=== PATIENT | male | born 1950 | race Caucasian/White ===

== ENCOUNTER 2016-08-31 07:25 | Emergency (ER) | payer MEDICARE, BC ==
[2016-08-31 07:39] VITALS: BP 132/90
--- NOTE | 2016-09-01 07:44 | ER ---
Date of Service: 08/31/2016 SUBJECTIVE: David presents to the emergency room with complaints of pain to the fifth digit of his right foot. He states that he stubbed his toe on an object in his house last evening. He states that he is having difficulties walking due to the discomfort. PAST MEDICAL HISTORY: 1. Hypertension. 2. Dyslipidemia. 3. Asthma. 4. Vitamin D deficiency. 5. COPD. 6. Esophagitis. 7. GERD. MEDICATIONS: 1. Toprol-XL 100 mg daily. 2. Lisinopril 2.5 mg daily. 3. Colace 100 mg daily. 4. Calcium plus D 1000 units daily. 5. Aspirin 81 mg daily. 6. Albuterol HFA 2 puffs q.4 hours p.r.n. ALLERGIES: NKDA. REVIEW OF SYSTEMS: Denies any injury other than what is isolated to the fifth digit of the right foot. Denies any numbness or tingling in the distal portion of the extremity. PHYSICAL EXAMINATION: General: This is a 65-year-old male patient in no acute distress. Vital Signs: Blood pressure is 132/90, pulse rate is 82, temperature is 35.7, respiratory rate is 20. Skin: Warm, pink, and dry. Musculoskeletal: He does have mild ecchymosis to the fifth digit of the right foot. No obvious fracture deformity noted. Neurovascular, circulation, sensation, and motor function within normal limits. He does again have some mild ecchymosis. RADIOGRAPHIC DATA: Radiographs of the digit were obtained. There was no evidence of any acute fracture or dislocation. ASSESSMENT: Toe contusion. PLAN: The patient will be discharged. Tylenol and ibuprofen for discomfort. Ice the digit for 10 to 15 minutes every 1 to 2 hours. Follow up in the clinic if not gradually improving. All questions were answered. MWK: 08/31/2016 18:51:57 MODL: 08/31/2016 23:42:15 /[id number]
== END 2016-08-31 08:49 | disposition home or self-care (01) ==
LOC: VM.ED 07:25
DX: S90.121A Contusion of right lesser toe(s) without damage to nail, initial encounter (principal); I10 Essential (primary) hypertension; E78.5 Hyperlipidemia, unspecified; J45.909 Unspecified asthma, uncomplicated; J44.9 Chronic obstructive pulmonary disease, unspecified; K21.9 Gastro-esophageal reflux disease without esophagitis; Z79.82 Long term (current) use of aspirin; Z79.899 Other long term (current) drug therapy; W22.8XXA Striking against or struck by other objects, initial encounter
CPT/HCPCS: 73660-T9; 99282-GF; 99283

== ENCOUNTER 2017-01-14 20:58 | Emergency (ER) | payer MEDICARE, BC ==
[2017-01-14 21:23] VITALS: BP 118/72
--- NOTE | 2017-01-15 01:28 | EDM.PDOC ---
ED HPI GENERAL MEDICAL PROBLEM - General Chief Complaint: Upper Extremity Injury/Pain Stated Complaint: fall, pain to left hand/thumb, bruised knee Time Seen by Provider: 01/14/17 21:15 Source of Information: Reports: Patient History Limitations: Reports: No Limitations - History of Present Illness INITIAL COMMENTS - FREE TEXT/NARRATIVE: Pt. states that he fell onto an outstretched R hand while walking out of work. Pt. states that he did not strike his head or injure his neck. He complains if pain to the left thumb and left anterior shoulder pain. He states that he is not experiencing any numbess or tingling in the L distal upper extremity. He also complained of pain to his L anterior lower leg. Onset: Today Onset Date: 01/14/17 Location: Reports: Upper Extremity, Left, Lower Extremity, Left Severity: Moderate Improves with: Reports: None Worsens with: Reports: Movement Associated Symptoms: Reports: No Other Symptoms, Confusion, Chest Pain left thumb/shoulder Pain Score (Numeric/FACES): 9 - Related Data Allergies Allergy/AdvReac Type Severity Reaction Status Date / Time No Known Drug Allergies Allergy Cannot Verified 01/14/17 21:08 Remember Home Meds: Home Meds Aspirin [Halfprin] 81 mg PO DAILY 05/25/13 [History] Ca Cmb No.1/Vit D3/B-6/FA/B12 [Vitamin D3 1,000 Unit] 1 each PO DAILY 05/25/13 [ History] Docusate Sodium [Colace] 100 mg PO DAILY 05/25/13 [History] Lisinopril [Lisinopril] 2.5 mg PO DAILY 05/25/13 [History] Metoprolol Succinate [Toprol XL 100mg] 100 mg PO DAILY 05/25/13 [History] Albuterol [Proventil HFA] 2 inh Q4H PRN 12/03/14 [History] Past Medical History Cardiovascular History: Reports: Other (See Below) Other Cardiovascular History: Mitral valve repair Respiratory History: Reports: Bronchitis, Recurrent Gastrointestinal History: Reports: GERD Psychiatric History: Reports: Developmental Delay - Past Surgical History Cardiovascular Surgical History: Reports: Valve Replacement Musculoskeletal Surgical History: Reports: Knee Replacement Social & Family History - Tobacco Use Smoking Status *Q: Never Smoker Years of Tobacco use: 10 - Alcohol Use Days Per Week of Alcohol Use: 0 - Recreational Drug Use Recreational Drug Use: No Review of Systems - Review of Systems Review Of Systems: See Below Constitutional: Reports: No Symptoms Eyes: Reports: No Symptoms Ears: Reports: No Symptoms Nose: Reports: No Symptoms Mouth/Throat: Reports: No Symptoms Respiratory: Reports: No Symptoms Cardiovascular: Reports: No Symptoms GI/Abdominal: Reports: No Symptoms Musculoskeletal: Reports: Arm Pain Skin: Reports: No Symptoms Neurological: Reports: No Symptoms Psychiatric: Reports: No Symptoms ED EXAM, GENERAL - Physical Exam Exam: See Below General Appearance: Alert, WD/WN Ears: Normal External Exam, Normal Canal Nose: Normal Inspection, Normal Mucosa, No Blood Throat/Mouth: Normal Inspection, Normal Lips, Normal Teeth, Normal Oropharynx, No Airway Compromise Head: Atraumatic, Normocephalic Neck: Normal Inspection Respiratory/Chest: No Respiratory Distress, Lungs Clear, Normal Breath Sounds, No Accessory Muscle Use Cardiovascular: Normal Peripheral Pulses, Regular Rate, Rhythm, No Edema, No Murmur Peripheral Pulses: 3+: Radial (L), Radial (R), Posterior Tibial (L), Posterior Tibial (R) GI/Abdominal: Normal Bowel Sounds, Soft, Non-Tender, No Organomegaly, No Mass (Male) Exam: Deferred Rectal (Males) Exam: Deferred Back Exam: Normal Inspection, Full Range of Motion Extremities: Normal Capillary Refill, Arm Pain (anterior upper arm pain), Leg Pain (abrasions noted to L anterior lower leg, superficial in nature. No deformity or other abnormality noted.), Other (pain to L thumb. No edema or ecchymosis noted. Not crepitus or deformity.) Neurological: Alert, Oriented, CN II-XII Intact, Normal Cognition, Normal Reflexes, No Motor/Sensory Deficits Psychiatric: Normal Affect, Normal Mood Skin Exam: Warm, Dry, Intact, Normal Color Lymphatic: No Adenopathy Course - Vital Signs Last Recorded V/S: Last Vital Signs Temp 35.9 C 01/14/17 21:09 Pulse 79 01/14/17 21:09 Resp 16 01/14/17 21:09 BP 118/72 01/14/17 21:09 Pulse Ox 96 01/14/17 21:09 - Orders/Labs/Meds Orders: Active Orders 24 hr Category Date Time Status Hand Comp Min 3V Lt [CR] Stat Exams 01/14/17 21:12 Stop Req Hand Comp Min 3V Lt [CR] Stat Exams 01/14/17 21:12 Taken Shoulder Comp Lt [CR] Stat Exams 01/14/17 21:12 Taken - Radiology Interpretation Free Text/Narrative:: radiographs of L hand and L upper arm obtained and were negative. Departure - Departure Time of Disposition: 22:16 Disposition: Home, Self-Care 01 Condition: Good Clinical Impression: Left thumb sprain, Left shoulder strain, Abrasion of left lower leg, Shoulder sprain, Thumb sprain - Discharge Information Instructions: Shoulder Pain, Cryotherapy, [id number], Thumb Sprain Referrals: Shirley Tavarez MD [Primary Care Provider] - Forms: ED Department Discharge Additional Instructions: Home to rest. Ice painful areas for 10-15 min every 1-2 hours. Ibuprofen 600mg every 6 hours. Follow-up in clinic in 10-14 days for recheck, sooner if not gradually improving. - My Orders Last 24 Hours: My Active Orders 01/14/17 21:12 Hand Comp Min 3V Lt [CR] Stat Hand Comp Min 3V Lt [CR] Stat Shoulder Comp Lt [CR] Stat - Assessment/Plan Last 24 Hours: My Active Orders 01/14/17 21:12 Hand Comp Min 3V Lt [CR] Stat Hand Comp Min 3V Lt [CR] Stat Shoulder Comp Lt [CR] Stat Assessment:: L thumb sprain L anterior shoulder pain L lower leg abrasions, superficial. Plan: Home to rest. Ice painful areas for 10-15 min every 1-2 hours. Ibuprofen 600mg every 6 hours. Follow-up in clinic in 10-14 days for recheck, sooner if not gradually improving.
== END 2017-01-14 22:16 | disposition home or self-care (01) ==
LOC: VM.ED 20:58
DX: S63.602A Unspecified sprain of left thumb, initial encounter (principal); S43.402A Unspecified sprain of left shoulder joint, initial encounter; S46.912A Strain of unspecified muscle, fascia and tendon at shoulder and upper arm level, left arm, initial encounter; S80.812A Abrasion, left lower leg, initial encounter; K21.9 Gastro-esophageal reflux disease without esophagitis; Z79.82 Long term (current) use of aspirin; Z79.899 Other long term (current) drug therapy; Z96.659 Presence of unspecified artificial knee joint; X50.1XXA Overexertion from prolonged static or awkward postures, initial encounter
CPT/HCPCS: 73030-LT; 73130-LT; 99283; 99283-GF

== ENCOUNTER 2017-04-05 09:22 | Emergency (ER) | payer MEDICARE, BC ==
[2017-04-05] MEDS ORDERED: GI Cocktail Oral Solution 30 ML PO ONE (09:39)
[2017-04-05] MEDS ORDERED: Sodium Chloride 0.9% 10 ML Syringe FLUSH PRN (09:39)
[2017-04-05] MEDS ORDERED: Aspirin 81 MG Tab.Chew PO ONE (09:39)
[2017-04-05 09:50] VITALS: BP 139/83
[2017-04-05 10:31] LABS: CHLORIDE,CL 106 mmol/L (98-107); SODIUM,NA 141 mmol/L (136-145)
--- NOTE | 2017-04-05 10:53 | EDM.PDOC ---
ED HPI GENERAL MEDICAL PROBLEM - General Chief Complaint: Chest Pain Stated Complaint: CHEST PAIN Time Seen by Provider: 04/05/17 09:29 Source of Information: Reports: Patient History Limitations: Reports: No Limitations - History of Present Illness INITIAL COMMENTS - FREE TEXT/NARRATIVE: Patient reports pain to the mid sternum around 0700. States his pain is worse with breathing as well as with movement. Does have a history of GERD and heartburn. His family was concerned with him and requested that he come to the emergency room. He does have history of mitral valve surgery. He currently has no complaints of nausea/vomiting, sweating, chest pressure, headache, abdominal pain. He does state that he does on intermittent occasions have some tingling down the left arm. Denies having a prior DE but has had angiograms in the past. He is frequently seen here for similar complaints. Onset: Today, Sudden Onset Date: 04/05/17 Onset Time: 07:00 Duration: Intermittent Location: Reports: Chest, Upper Extremity, Left Quality: Reports: Burning, Sharp Severity: Moderate Associated Symptoms: Reports: Chest Pain Mid-Sternal Pain Score (Numeric/FACES): 8 - Related Data Allergies Allergy/AdvReac Type Severity Reaction Status Date / Time No Known Drug Allergies Allergy Cannot Verified 04/05/17 09:52 Remember Home Meds: Home Meds Aspirin [Halfprin] 81 mg PO DAILY 05/25/13 [History] Ca Cmb No.1/Vit D3/B-6/FA/B12 [Vitamin D3 1,000 Unit] 1 each PO DAILY 05/25/13 [ History] Docusate Sodium [Colace] 100 mg PO DAILY 05/25/13 [History] Lisinopril [Lisinopril] 2.5 mg PO DAILY 05/25/13 [History] Metoprolol Succinate [Toprol XL 100mg] 100 mg PO DAILY 05/25/13 [History] Albuterol [Proventil HFA] 2 inh Q4H PRN 12/03/14 [History] Past Medical History Cardiovascular History: Reports: Other (See Below) Other Cardiovascular History: Mitral valve repair Respiratory History: Reports: Bronchitis, Recurrent Gastrointestinal History: Reports: GERD Psychiatric History: Reports: Developmental Delay - Past Surgical History Cardiovascular Surgical History: Reports: Valve Replacement Musculoskeletal Surgical History: Reports: Knee Replacement Social & Family History - Tobacco Use Smoking Status *Q: Unknown Ever Smoked Years of Tobacco use: 10 - Alcohol Use Days Per Week of Alcohol Use: 0 - Recreational Drug Use Recreational Drug Use: No ED ROS GENERAL - Review of Systems Review Of Systems: See Below Constitutional: Reports: No Symptoms HEENT: Reports: No Symptoms Respiratory: Reports: No Symptoms Cardiovascular: Reports: Chest Pain Endocrine: Reports: No Symptoms GI/Abdominal: Reports: No Symptoms : Reports: No Symptoms Musculoskeletal: Reports: Shoulder Pain, Arm Pain Skin: Reports: No Symptoms Neurological: Reports: No Symptoms Psychiatric: Reports: No Symptoms Hematologic/Lymphatic: Reports: No Symptoms Immunologic: Reports: No Symptoms ED EXAM, GENERAL - Physical Exam Exam: See Below Exam Limited By: No Limitations General Appearance: Alert, WD/WN, No Apparent Distress Ears: Normal External Exam, Normal Canal, Hearing Grossly Normal, Normal TMs Nose: Normal Inspection, Normal Mucosa, No Blood Throat/Mouth: Normal Inspection, Normal Lips, Normal Teeth, Normal Gums, Normal Oropharynx, Normal Voice, No Airway Compromise Head: Atraumatic, Normocephalic Neck: Lymphadenopathy (L), Lymphadenopathy (R) Respiratory/Chest: No Respiratory Distress, Lungs Clear, Normal Breath Sounds, No Accessory Muscle Use, Chest Non-Tender Cardiovascular: Normal Peripheral Pulses, Regular Rate, Rhythm, No Edema, No Gallop, No JVD, No Murmur, No Rub GI/Abdominal: Normal Bowel Sounds, Soft, Non-Tender, No Organomegaly, No Distention, No Abnormal Bruit, No Mass Back Exam: Normal Inspection, Full Range of Motion, NT Extremities: Normal Inspection, Normal Range of Motion, Non-Tender, Normal Capillary Refill, No Pedal Edema Neurological: Alert, Oriented, CN II-XII Intact, Normal Cognition, Normal Gait, Normal Reflexes, No Motor/Sensory Deficits Psychiatric: Normal Affect, Normal Mood Skin Exam: Warm, Dry, Intact, Normal Color, No Rash Course - Vital Signs Last Recorded V/S: Last Vital Signs Temp 34.6 C L 04/05/17 09:25 Pulse 79 04/05/17 09:25 Resp 15 04/05/17 09:25 BP 139/83 04/05/17 09:25 Pulse Ox 94 L 04/05/17 09:25 - Orders/Labs/Meds Orders: Active Orders 24 hr Category Date Time Status Chest 1V Frontal [CR] Stat Exams 04/05/17 09:38 Ordered Sodium Chloride 0.9% [Saline Flush] Med 04/05/17 09:39 Active 10 ml FLUSH ASDIRECTED PRN Saline Lock Insert [OM.PC] Routine Oth 04/05/17 09:39 Ordered Medication Orders Sodium Chloride (Saline Flush) 10 ml FLUSH ASDIRECTED PRN PRN Reason: Keep Vein Open Labs: Laboratory Tests 04/05/17 04/05/17 Range/Units 09:53 09:53 WBC 6.8 (4.0-10.0) x10^3/uL RBC 5.03 (4.5-6.0) x10^6/uL Hgb 15.5 (14.0-18.0) g/dL Hct 46.5 (40.0-52.0) % MCV 92.4 (78.0-93.0) fL MCH 30.8 (26.0-32.0) pg MCHC 33.3 (32.0-36.0) g/dL RDW Coeff of Almaz 14.2 (10.0-15.0) % Plt Count 170 (130-400) x10^3/uL Neut % (Auto) 65.1 (50.0-80.0) % Lymph % (Auto) 20.7 L (25.0-50.0) % [place] % (Auto) 10.1 (2.0-11.0) % Eos % (Auto) 3.8 (0.0-4.0) % Baso % (Auto) 0.3 (0.2-1.2) % Sodium 141 (136-145) mmol/L Potassium 4.1 (3.5-5.1) mmol/L Chloride 106 (98-107) mmol/L Carbon Dioxide 26 (21-32) mmol/L BUN 14 (7-18) mg/dL Creatinine 1.1 (0.70-1.30) mg/dL Est Cr Clr Drug Dosing TNP Estimated GFR (MDRD) > 60 Glucose 116 H (74-106) mg/dL Calcium 8.8 (8.5-10.1) mg/dL Corrected Calcium 9.28 (8.5-10.1) mg/dL Total Bilirubin 0.6 (0.2-1.0) mg/dL AST 19 (15-37) U/L ALT 26 (16-63) U/L Alkaline Phosphatase 86 (46-116) U/L Troponin I < 0.017 (<=0.056) ng/mL NT-Pro-B Natriuret Pep 220 H (<=125) pg/mL Total Protein 7.1 (6.4-8.2) g/dL Albumin 3.4 (3.4-5.0) g/dL Globulin 3.7 Albumin/Globulin Ratio 0.92 Meds: Medications Generic Name Dose Route Start Last Admin Trade Name Freq PRN Reason Stop Dose Admin Sodium Chloride 10 ml 04/05/17 09:39 Saline Flush FLUSH ASDIRECTED PRN Keep Vein Open Discontinued Medications Generic Name Dose Route Start Last Admin Trade Name Freq PRN Reason Stop Dose Admin Al Hydroxide/Mg Hydroxide 30 ml 04/05/17 09:39 04/05/17 09:55 Gi Cocktail PO 04/05/17 09:40 30 ml ONETIME ONE Administration Aspirin 243 mg 04/05/17 09:39 04/05/17 09:35 Aspirin PO 04/05/17 09:40 243 mg ONETIME ONE Administration - Re-Assessments/Exams Free Text/Narrative Re-Assessment/Exam: 04/05/17 10:40 review of x-ray results: no acute process, labwork shows negative troponin, ekg shows no ST elevation, depression or changes, sinus with a 1st degree AV block 04/05/17 12:19 Departure - Departure Time of Disposition: 11:03 Disposition: Home, Self-Care 01 Condition: Good Clinical Impression: Atypical chest pain, Atypical chest pain Instructions: Nonspecific Chest Pain, [id number] Additional Instructions: Your EKG, X-ray, and labs were all normal today. There is no evidence of an acute heart attack. Follow up with your primary care provider as symptoms warrant. Make sure you are taking your regular medications as scheduled. If you have any questions or concerns, please call us at any time. - My Orders Last 24 Hours: My Active Orders 04/05/17 09:38 Chest 1V Frontal [CR] Stat 04/05/17 09:39 Sodium Chloride 0.9% [Saline Flush] 10 ml FLUSH ASDIRECTED PRN Saline Lock Insert [OM.PC] Routine - Assessment/Plan Last 24 Hours: My Active Orders 04/05/17 09:38 Chest 1V Frontal [CR] Stat 04/05/17 09:39 Sodium Chloride 0.9% [Saline Flush] 10 ml FLUSH ASDIRECTED PRN Saline Lock Insert [OM.PC] Routine
== END 2017-04-05 11:03 | disposition home or self-care (01) ==
LOC: VM.ED 09:22
DX: R07.89 Other chest pain (principal); Z79.82 Long term (current) use of aspirin; Z79.899 Other long term (current) drug therapy
CPT/HCPCS: 36415; 71045; 80053; 83880; 84484; 85025; 87804; 93005; 99284; A9270

== ENCOUNTER 2017-05-11 08:46 | Emergency (ER) | payer MEDICARE, BC ==
--- NOTE | 2017-05-11 09:14 | EDM.PDOC ---
ED HPI GENERAL MEDICAL PROBLEM - General Chief Complaint: Syncope Stated Complaint: Dizziness; low blood pressure Time Seen by Provider: 05/11/17 09:06 Source of Information: Reports: Patient, RN, RN Notes Reviewed History Limitations: Reports: No Limitations - History of Present Illness INITIAL COMMENTS - FREE TEXT/NARRATIVE: Patient presents emergency room at [facility] complaining of dizziness and low blood pressure that started yesterday. The patient states that he was at his dentist and had a tooth pulled. While he was at that appointment he states his blood pressure was low. The patient states today when he awoke he felt very dizzy and lightheaded. The patient denies any chest pain. No shortness of breath. The patient has not had any recent falls. The patient denies any other focal neurological deficit. Onset: Gradual Onset Date: 05/10/17 Middle Abdomen Pain Score (Numeric/FACES): 8 - Related Data Allergies Allergy/AdvReac Type Severity Reaction Status Date / Time No Known Drug Allergies Allergy Cannot Verified 05/11/17 09:31 Remember Home Meds: Home Meds Aspirin [Halfprin] 81 mg PO DAILY 05/25/13 [History] Ca Cmb No.1/Vit D3/B-6/FA/B12 [Vitamin D3 1,000 Unit] 1 each PO DAILY 05/25/13 [ History] Docusate Sodium [Colace] 100 mg PO DAILY 05/25/13 [History] Lisinopril [Lisinopril] 2.5 mg PO DAILY 05/25/13 [History] Metoprolol Succinate [Toprol XL 100mg] 100 mg PO DAILY 05/25/13 [History] Albuterol [Proventil HFA] 2 inh INH Q4H PRN 12/03/14 [History] Azithromycin [IMW: Azithromycin] 250 mg PO DAILY 5 Days #6 tab 05/11/17 [Rx] Past Medical History Cardiovascular History: Reports: Other (See Below) Other Cardiovascular History: Mitral valve repair Respiratory History: Reports: Bronchitis, Recurrent Gastrointestinal History: Reports: GERD Psychiatric History: Reports: Developmental Delay - Past Surgical History Cardiovascular Surgical History: Reports: Valve Replacement Musculoskeletal Surgical History: Reports: Knee Replacement Social & Family History - Tobacco Use Smoking Status *Q: Unknown Ever Smoked Years of Tobacco use: 10 - Alcohol Use Days Per Week of Alcohol Use: 0 - Recreational Drug Use Recreational Drug Use: No ED ROS GENERAL - Review of Systems Review Of Systems: See Below Constitutional: Denies: Fever, Chills, Weakness Respiratory: Denies: Shortness of Breath, Cough Cardiovascular: Reports: Blood Pressure Problem. Denies: Chest Pain, Palpitations GI/Abdominal: Reports: Nausea. Denies: Abdominal Pain, Vomiting Skin: Reports: No Symptoms Neurological: Reports: Dizziness - Physical Exam Exam: See Below Exam Limited By: No Limitations General Appearance: Alert, No Apparent Distress Respiratory/Chest: No Respiratory Distress, Lungs Clear, Normal Breath Sounds Cardiovascular: Normal Peripheral Pulses, Regular Rate, Rhythm GI/Abdominal: Soft, Non-Tender, Abnormal Bowel Sounds (Hypoactive) Neuro Exam (Abbreviated): Alert, Oriented Skin Exam: Warm, Dry, Intact, Normal Color, No Rash Course - Vital Signs Last Recorded V/S: Last Vital Signs Temp 35.5 C 05/11/17 09:05 Pulse 85 05/11/17 09:05 Resp 20 05/11/17 09:05 BP 139/87 05/11/17 09:05 Pulse Ox 96 05/11/17 09:05 Orthostatic Blood Pressure [ 83/42 Standing] Orthostatic Blood Pressure [ 99/54 Sitting] Orthostatic Blood Pressure [ 122/57 Supine] - Orders/Labs/Meds Orders: Active Orders 24 hr Category Date Time Status EKG 12 Lead [EKG Documentation Completion] [RC] STAT Care 05/11/17 09:17 Active Orthostatic Vital Signs [RC] ASDIRECTED Care 05/11/17 10:09 Active Chest 2V [CR] Stat Exams 05/11/17 09:18 Taken UA W/MICROSCOPIC [URIN] Stat Lab 05/11/17 10:00 Ordered Sodium Chloride 0.9% [Saline Flush] Med 05/11/17 09:20 Active 10 ml FLUSH ASDIRECTED PRN Peripheral IV Insertion Adult [OM.PC] Routine Oth 05/11/17 09:20 Ordered Medication Orders Sodium Chloride (Saline Flush) 10 ml FLUSH ASDIRECTED PRN PRN Reason: Keep Vein Open Labs: Laboratory Tests 05/11/17 05/11/17 05/11/17 Range/Units 09:30 09:30 09:30 WBC 6.2 (4.0-10.0) x10^3/uL RBC 4.99 (4.5-6.0) x10^6/uL Hgb 15.4 (14.0-18.0) g/dL Hct 46.0 (40.0-52.0) % MCV 92.2 (78.0-93.0) fL MCH 30.9 (26.0-32.0) pg MCHC 33.5 (32.0-36.0) g/dL RDW Coeff of Almaz 14.2 (10.0-15.0) % Plt Count 153 (130-400) x10^3/uL Neut % (Auto) 62.7 (50.0-80.0) % Lymph % (Auto) 23.4 L (25.0-50.0) % [place] % (Auto) 9.4 (2.0-11.0) % Eos % (Auto) 4.0 (0.0-4.0) % Baso % (Auto) 0.5 (0.2-1.2) % Sodium 141 (136-145) mmol/L Potassium 4.0 (3.5-5.1) mmol/L Chloride 106 (98-107) mmol/L Carbon Dioxide 25 (21-32) mmol/L BUN 16 (7-18) mg/dL Creatinine 1.3 (0.70-1.30) mg/dL Est Cr Clr Drug Dosing TNP Estimated GFR (MDRD) 55 Glucose 139 H (74-106) mg/dL Lactic Acid 2.3 H* (0.4-2.0) mmol/L Calcium 8.8 (8.5-10.1) mg/dL Magnesium 1.8 (1.8-2.4) mg/dL C-Reactive Protein 1.5 H (<=0.9) mg/dL Meds: Medications Generic Name Dose Route Start Last Admin Trade Name Freq PRN Reason Stop Dose Admin Sodium Chloride 10 ml 05/11/17 09:20 Saline Flush FLUSH ASDIRECTED PRN Keep Vein Open Discontinued Medications Generic Name Dose Route Start Last Admin Trade Name Freq PRN Reason Stop Dose Admin Sodium Chloride 1,000 mls @ 999 mls/hr 05/11/17 09:20 Normal Saline IV 05/11/17 10:20 ONETIME ONE - Radiology Interpretation Free Text/Narrative:: CXR: Bibasilar hypoventilatory changes with actual infiltrate at right lung base suspected - see scanned report in EMR Departure - Departure Time of Disposition: 10:39 Disposition: Home, Self-Care 01 Condition: Good Clinical Impression: Community acquired pneumonia Qualifiers: Laterality: right Lung location: lower lobe of lung Qualified Code(s): J18.1 - Lobar pneumonia, unspecified organism - Discharge Information Prescriptions: Azithromycin [IMW: Azithromycin] 250 mg PO DAILY 5 Days #6 tab Instructions: Community-Acquired Pneumonia, Adult Referrals: Shirley Tavarez MD [Primary Care Provider] - Forms: ED Department Discharge Additional Instructions: 1. Stay well hydrated and rest 2. Take antibiotics for the full coarse, even if you feel better 3. Wash hands frequently 4. Cough and deep breath several times any hour 5. May alternate Tylenol/Advil as needed for discomfort 6. See your Primary as symptom warrant 7. Call with any questions/concerns - Problem List Review Problem List Initiated/Reviewed/Updated: Yes - My Orders Last 24 Hours: My Active Orders 05/11/17 09:17 EKG 12 Lead [EKG Documentation Completion] [RC] STAT 05/11/17 09:18 Chest 2V [CR] Stat 05/11/17 09:20 Sodium Chloride 0.9% [Saline Flush] 10 ml FLUSH ASDIRECTED PRN Peripheral IV Insertion Adult [OM.PC] Routine 05/11/17 10:00 UA W/MICROSCOPIC [URIN] Stat 05/11/17 10:09 Orthostatic Vital Signs [RC] ASDIRECTED - Assessment/Plan Last 24 Hours: My Active Orders 05/11/17 09:17 EKG 12 Lead [EKG Documentation Completion] [RC] STAT 05/11/17 09:18 Chest 2V [CR] Stat 05/11/17 09:20 Sodium Chloride 0.9% [Saline Flush] 10 ml FLUSH ASDIRECTED PRN Peripheral IV Insertion Adult [OM.PC] Routine 05/11/17 10:00 UA W/MICROSCOPIC [URIN] Stat 05/11/17 10:09 Orthostatic Vital Signs [RC] ASDIRECTED Plan: Labs and xray reviewed with patient. Discussed diagnosis of CAP with patient. Start on ZPak for 5 days. Recommend f/u with PCP in one week to check for resolution.
[2017-05-11] MEDS ORDERED: Sodium Chloride 0.9% 10 ML Syringe FLUSH PRN (09:20)
[2017-05-11 09:54] LABS: CHLORIDE,CL 106 mmol/L (98-107); SODIUM,NA 141 mmol/L (136-145)
[2017-05-11] MEDS: Sodium Chloride 0.9% 1,000 ML IV ONE (10:45)
[2017-05-11 11:47] VITALS: BP 101/61
== END 2017-05-11 11:53 | disposition home or self-care (01) ==
LOC: VM.ED 08:46
DX: J18.9 Pneumonia, unspecified organism (principal); Z79.2 Long term (current) use of antibiotics; Z79.82 Long term (current) use of aspirin; Z79.899 Other long term (current) drug therapy
CPT/HCPCS: 36415; 71046; 80048; 81001; 83605; 83735; 85025; 86140; 93005; 96360; 99283-GF; 99285; J7030

== ENCOUNTER 2018-05-23 09:13 | Emergency (ER) | payer MEDICARE, BC ==
[2018-05-23] MEDS ORDERED: GI Cocktail Oral Solution 30 ML PO ONE (09:32)
[2018-05-23 10:19] LABS: CHLORIDE,CL 105 mmol/L (98-107); SODIUM,NA 141 mmol/L (136-145)
[2018-05-23 10:20] LABS: ANION GAP 9.4 mmol/L (10-20)
[2018-05-23 10:43] VITALS: BP 91/52
--- NOTE | 2018-05-23 10:53 | EDM.PDOC ---
ED HPI GENERAL MEDICAL PROBLEM - General Chief Complaint: Chest Pain Stated Complaint: ACID REFLEX, DISCOMFORTABLE Time Seen by Provider: 05/23/18 09:25 Source of Information: Reports: Patient History Limitations: Reports: No Limitations - History of Present Illness INITIAL COMMENTS - FREE TEXT/NARRATIVE: Pt. presents to ER with complaints of "heartburn". Pt. has a history of CAD and cardiomyopathy and states that he has also had issues with GERD in the past. He states that the symptoms are more like his GERD symptoms with burning discomfort in the epigastrium/mid chest and burning/acidic feeling in throat. Denies any radiation into back, neck or law. No nausea/vomiting. No blood in stools. Denies any dyspnea or diaphoresis. Onset: Today Location: Reports: Chest, Abdomen Quality: Reports: Burning Severity: Moderate Associated Symptoms: Denies: cough w sputum, Diaphoresis, Fever/Chills, Shortness of Breath, Syncope Chest Pain Score (Numeric/FACES): 3 - Related Data Allergies Allergy/AdvReac Type Severity Reaction Status Date / Time No Known Drug Allergies Allergy Cannot Verified 05/23/18 09:44 Remember Home Meds: Home Meds Aspirin [Halfprin] 81 mg PO DAILY 05/25/13 [History] Ca Cmb No.1/Vit D3/B-6/FA/B12 [Vitamin D3 1,000 Unit] 1 tab PO DAILY 05/25/13 [ History] Docusate Sodium [Colace] 100 - 300 mg PO DAILY 05/25/13 [History] Lisinopril 5 mg PO DAILY 05/25/13 [History] Metoprolol Succinate [Toprol XL 100mg] 100 mg PO DAILY 05/25/13 [History] Albuterol [Proventil HFA] 2 inh INH Q4H PRN 12/03/14 [History] Pantoprazole Sodium [Protonix] 40 mg PO DAILY 05/23/18 [History] atorvaSTATin [Lipitor] 10 mg PO DAILY 05/23/18 [History] Past Medical History Cardiovascular History: Reports: Other (See Below) Other Cardiovascular History: Mitral valve repair Respiratory History: Reports: Bronchitis, Recurrent Gastrointestinal History: Reports: GERD Psychiatric History: Reports: Developmental Delay - Past Surgical History Cardiovascular Surgical History: Reports: Valve Replacement Musculoskeletal Surgical History: Reports: Knee Replacement Social & Family History - Family History Family Medical History: Noncontributory - Tobacco Use Smoking Status *Q: Former Smoker Used Tobacco, but Quit: Yes Month/Year Tobacco Last Used: 1989 - Recreational Drug Use Recreational Drug Use: No ED ROS GENERAL - Review of Systems Review Of Systems: See Below Constitutional: Reports: No Symptoms HEENT: Reports: No Symptoms Respiratory: Reports: No Symptoms Cardiovascular: Reports: Other (see HPI) Endocrine: Reports: No Symptoms GI/Abdominal: Reports: Abdominal Pain : Reports: No Symptoms Musculoskeletal: Reports: No Symptoms Skin: Reports: No Symptoms Neurological: Reports: No Symptoms Psychiatric: Reports: No Symptoms Hematologic/Lymphatic: Reports: No Symptoms Immunologic: Reports: No Symptoms ED EXAM, GENERAL - Physical Exam Exam: See Below General Appearance: Alert, WD/WN, No Apparent Distress Throat/Mouth: Normal Inspection, Normal Lips, Normal Teeth, Normal Gums, Normal Oropharynx, Normal Voice, No Airway Compromise Head: Atraumatic, Normocephalic Neck: Normal Inspection, Supple, Non-Tender, Full Range of Motion Respiratory/Chest: No Respiratory Distress, Lungs Clear, Normal Breath Sounds, No Accessory Muscle Use, Chest Non-Tender Cardiovascular: Normal Peripheral Pulses, Regular Rate, Rhythm, No Edema, No Gallop, No JVD, No Murmur, No Rub Peripheral Pulses: 3+: Radial (L), Radial (R) GI/Abdominal: Normal Bowel Sounds, Tender (tender on palpation of epigastric area) (Male) Exam: Deferred Rectal (Males) Exam: Deferred Back Exam: Normal Inspection, Full Range of Motion, NT Extremities: Normal Inspection, Normal Range of Motion, Non-Tender, Normal Capillary Refill, No Pedal Edema Neurological: Alert, Oriented, CN II-XII Intact, Normal Cognition, Normal Gait, Normal Reflexes, No Motor/Sensory Deficits Psychiatric: Normal Affect, Normal Mood Skin Exam: Warm, Dry, Intact, Normal Color, No Rash Course - Vital Signs Last Recorded V/S: Last Vital Signs Temp 35.6 C 05/23/18 09:41 Pulse 69 05/23/18 10:26 Resp 18 05/23/18 10:26 BP 91/52 L 05/23/18 10:26 Pulse Ox 97 05/23/18 10:26 - Orders/Labs/Meds Orders: Active Orders 24 hr Category Date Time Status EKG Documentation Completion [RC] STAT Care 02/19/19 09:33 Active Labs: Laboratory Tests 05/23/18 05/23/18 05/23/18 Range/Units 09:45 09:45 09:45 WBC 6.1 (4.0-10.0) x10^3/uL RBC 5.00 (4.5-6.0) x10^6/uL Hgb 15.4 (14.0-18.0) g/dL Hct 46.9 (40.0-52.0) % MCV 93.8 H (78.0-93.0) fL MCH 30.8 (26.0-32.0) pg MCHC 32.8 (32.0-36.0) g/dL RDW Coeff of Almaz 14.5 (10.0-15.0) % Plt Count 147 (130-400) x10^3/uL Neut % (Auto) 59.9 (50.0-80.0) % Lymph % (Auto) 25.1 (25.0-50.0) % [place] % (Auto) 12.2 H (2.0-11.0) % Eos % (Auto) 2.5 (0.0-4.0) % Baso % (Auto) 0.3 (0.2-1.2) % PT 10.8 (9.6-11.4) SEC INR 1.0 L (2.0-3.5) Sodium 141 (136-145) mmol/L Potassium 4.4 (3.5-5.1) mmol/L Chloride 105 (98-107) mmol/L Carbon Dioxide 31 (21-32) mmol/L Anion Gap 9.4 L (10-20) mmol/L BUN 18 (7-18) mg/dL Creatinine 1.1 (0.70-1.30) mg/dL Est Cr Clr Drug Dosing 68.21 mL/min Estimated GFR (MDRD) > 60 Glucose 99 (74-106) mg/dL Calcium 9.0 (8.5-10.1) mg/dL Corrected Calcium 9.64 (8.5-10.1) mg/dL Total Bilirubin 0.5 (0.2-1.0) mg/dL AST 16 (15-37) U/L ALT 22 (16-63) U/L Alkaline Phosphatase 87 (46-116) U/L Troponin I < 0.017 (<=0.056) ng/mL Total Protein 6.8 (6.4-8.2) g/dL Albumin 3.2 L (3.4-5.0) g/dL Globulin 3.6 Albumin/Globulin Ratio 0.89 Meds: Medications Discontinued Medications Generic Name Dose Route Start Last Admin Trade Name Stanleyq PRN Reason Stop Dose Admin Al Hydroxide/Mg Hydroxide 30 ml 05/23/18 09:32 05/23/18 09:38 Gi Cocktail PO 05/23/18 09:33 30 ml ONETIME ONE Administration Departure - Departure Time of Disposition: 10:30 Disposition: Home, Self-Care 01 Clinical Impression: GERD (gastroesophageal reflux disease) Qualifiers: Esophagitis presence: with esophagitis Qualified Code(s): K21.0 - Gastro- esophageal reflux disease with esophagitis - Discharge Information Instructions: Gastroesophageal Reflux Disease, Adult, [id number] Referrals: Shirley Tavarez MD [Primary Care Provider] - Forms: ED Department Discharge Additional Instructions: Continue with maalox as needed for continued heartburn. Recheck in clinic in 10-14 days. Continue with the protonix. - Problem List Review Problem List Initiated/Reviewed/Updated: Yes - My Orders Last 24 Hours: My Active Orders 05/23/18 09:33 EKG Documentation Completion [RC] STAT - Assessment/Plan Last 24 Hours: My Active Orders 05/23/18 09:33 EKG Documentation Completion [RC] STAT Plan: Continue with maalox as needed for continued heartburn. Recheck in clinic in 10-14 days. Continue with the protonix.
== END 2018-05-23 10:30 | disposition home or self-care (01) ==
LOC: VM.ED 09:13
DX: K21.0 Gastro-esophageal reflux disease with esophagitis (principal); Z87.891 Personal history of nicotine dependence; Z79.82 Long term (current) use of aspirin; Z79.899 Other long term (current) drug therapy
CPT/HCPCS: 36415; 80053; 84484; 85025; 85610; 93005; 99283-GF; 99285-25; A9270-GY

== ENCOUNTER 2019-01-31 08:03 | Emergency (ER) | payer MEDICARE, BC ==
[2019-01-31 08:37] VITALS: BP 136/74; PULSE 91
--- NOTE | 2019-02-01 12:43 | EDM.PDOC ---
ED HPI GENERAL MEDICAL PROBLEM - General Chief Complaint: General Stated Complaint: POSSIBLE INFECTION NEAR INCISION Time Seen by Provider: 01/31/19 08:20 Source of Information: Reports: Patient History Limitations: Reports: No Limitations - History of Present Illness INITIAL COMMENTS - FREE TEXT/NARRATIVE: Pt. underwent umbilical surgery on 01/24/19. He had what sounds like a MARIAM drain placed to the left of the incision and he is concerned that there is a hard, sharp area in the area. Denies any fever or chills. No discharge from the area. He is concerned there may be retained suture material in the drain hole. Onset: Today Onset Date: 02/01/19 Location: Reports: Abdomen Middle Incisional Pain Score (Numeric/FACES): 3 - Related Data Allergies Allergy/AdvReac Type Severity Reaction Status Date / Time No Known Drug Allergies Allergy Cannot Verified 01/31/19 08:18 Remember Home Meds: Home Meds Aspirin [Halfprin] 81 mg PO DAILY 05/25/13 [History] Ca Cmb No.1/Vit D3/B-6/FA/B12 [Vitamin D3 1,000 Unit] 1 tab PO DAILY 05/25/13 [ History] Docusate Sodium [Colace] 100 - 300 mg PO DAILY 05/25/13 [History] Albuterol [Proventil HFA] 2 inh INH Q4H PRN 12/03/14 [History] atorvaSTATin [Lipitor] 10 mg PO DAILY 05/23/18 [History] Metoprolol Succinate [Toprol Xl] 75 mg PO DAILY 01/31/19 [History] Prochlorperazine [Compazine] 5 mg Q6H PRN 01/31/19 [History] Past Medical History Cardiovascular History: Reports: Afib, CAD, High Cholesterol, Other (See Below) Other Cardiovascular History: Mitral valve repair Respiratory History: Reports: Bronchitis, Recurrent, Other (See Below) Other Respiratory History: wheezing Gastrointestinal History: Reports: GERD Psychiatric History: Reports: Developmental Delay - Past Surgical History Cardiovascular Surgical History: Reports: Valve Replacement GI Surgical History: Reports: Hernia Repair/Other Musculoskeletal Surgical History: Reports: Knee Replacement Social & Family History - Family History Family Medical History: Noncontributory - Tobacco Use Smoking Status *Q: Unknown Ever Smoked - Recreational Drug Use Recreational Drug Use: No ED ROS GENERAL - Review of Systems Review Of Systems: See Below Constitutional: Reports: No Symptoms HEENT: Reports: No Symptoms Respiratory: Reports: No Symptoms Cardiovascular: Reports: No Symptoms Endocrine: Reports: No Symptoms GI/Abdominal: Reports: Other (see above) : Reports: No Symptoms Musculoskeletal: Reports: No Symptoms Skin: Reports: No Symptoms Neurological: Reports: No Symptoms Psychiatric: Reports: No Symptoms Hematologic/Lymphatic: Reports: No Symptoms Immunologic: Reports: No Symptoms ED EXAM, GENERAL - Physical Exam Exam: See Below Exam Limited By: No Limitations General Appearance: Alert, WD/WN, No Apparent Distress GI/Abdominal: Normal Bowel Sounds, Soft, Non-Tender, No Organomegaly, No Distention, No Mass, Other (The incision appears to be healing well. No significant erythema. The area in question that the patient is concerned about is granulation tissue. No retained surgical material noted.) (Male) Exam: Deferred Rectal (Males) Exam: Deferred Back Exam: Normal Inspection, Full Range of Motion Extremities: Normal Inspection, Normal Range of Motion, Non-Tender, No Pedal Edema, Normal Capillary Refill Neurological: Alert, Oriented, CN II-XII Intact, Normal Cognition, Normal Gait, Normal Reflexes, No Motor/Sensory Deficits Psychiatric: Normal Affect, Normal Mood Skin Exam: Warm, Dry, Intact, Normal Color, No Rash Course - Vital Signs Last Recorded V/S: Last Vital Signs Temp 36.1 C 01/31/19 08:05 Pulse 91 01/31/19 08:05 Resp 18 01/31/19 08:05 BP 136/74 01/31/19 08:05 Pulse Ox 95 01/31/19 08:05 Departure - Departure Time of Disposition: 08:30 Disposition: Home, Self-Care 01 Clinical Impression: Post surgical complication - Discharge Information Referrals: Latricia Thomas NP [Primary Care Provider] - Forms: ED Department Discharge Additional Instructions: Follow-up with your surgeon if there is increased redness, swelling or discharge from the area. Minimize touching the area as much as possible to decrease chances of the area getting infected. - Assessment/Plan Plan: Follow-up with your surgeon if there is increased redness, swelling or discharge from the area. Minimize touching the area as much as possible to decrease chances of the area getting infected.
== END 2019-01-31 08:30 | disposition home or self-care (01) ==
LOC: VM.ED 08:03
DX: T81.9XXA Unspecified complication of procedure, initial encounter (principal); E78.5 Hyperlipidemia, unspecified; Z79.82 Long term (current) use of aspirin; Z79.899 Other long term (current) drug therapy; Y83.9 Surgical procedure, unspecified as the cause of abnormal reaction of the patient, or of later complication, without mention of misadventure at the time of the procedure
CPT/HCPCS: 99283; 99283-GF

== ENCOUNTER 2019-06-30 10:06 | Emergency (ER) | payer MEDICARE, BC ==
--- NOTE | 2019-06-30 10:50 | EDM.PDOC ---
ED HPI GENERAL MEDICAL PROBLEM - General Chief Complaint: Abdominal Pain Stated Complaint: STOMACH PAIN Time Seen by Provider: 06/30/19 10:25 Source of Information: Reports: Patient History Limitations: Reports: No Limitations - History of Present Illness INITIAL COMMENTS - FREE TEXT/NARRATIVE: Patient presents to ER with complaints of abdominal pain. States started 2 days ago but has been worsening. Feels bloated. Abdomen is "sore all over". Worried that he has "issues with his hernia". Has had 2 previous hernia repairs. Denies fever. No nausea or vomiting. Does have more pain after eating. Stools are loose, watery, lei in color. Has not noted any blood in his stools. No cough, chest discomfort. Does admit that he is short of breath but is chronic in nature. History of appendectomy, cholecystectomy. Onset: Gradual Duration: Day(s): Location: Reports: Abdomen, Generalized Quality: Reports: Ache, Burning, Sharp Severity: Moderate Improves with: Reports: Rest Worsens with: Reports: Eating Associated Symptoms: Reports: Shortness of Breath. Denies: Confusion, Chest Pain, Cough, Fever/Chills, Loss of Appetite, Nausea/Vomiting Middle Abdomen Pain Score (Numeric/FACES): 7 - Related Data Allergies Allergy/AdvReac Type Severity Reaction Status Date / Time No Known Drug Allergies Allergy Cannot Verified 06/30/19 11:37 Remember Home Meds: Home Meds Aspirin [Halfprin] 81 mg PO DAILY 05/25/13 [History] Ca Cmb No.1/Vit D3/B-6/FA/B12 [Vitamin D3 1,000 Unit] 1 tab PO DAILY 05/25/13 [ History] Docusate Sodium [Colace] 100 - 300 mg PO DAILY 05/25/13 [History] Albuterol [Proventil HFA] 2 inh INH Q4H PRN 12/03/14 [History] atorvaSTATin [Lipitor] 10 mg PO DAILY 05/23/18 [History] Metoprolol Succinate [Toprol Xl] 75 mg PO DAILY 01/31/19 [History] Prochlorperazine [Compazine] 5 mg Q6H PRN 01/31/19 [History] Past Medical History Cardiovascular History: Reports: Afib, CAD, High Cholesterol, Other (See Below) Other Cardiovascular History: Mitral valve repair Respiratory History: Reports: Bronchitis, Recurrent, Other (See Below) Other Respiratory History: wheezing Gastrointestinal History: Reports: GERD Psychiatric History: Reports: Developmental Delay - Past Surgical History Cardiovascular Surgical History: Reports: Valve Replacement GI Surgical History: Reports: Hernia Repair/Other Musculoskeletal Surgical History: Reports: Knee Replacement Social & Family History - Family History Family Medical History: Noncontributory - Tobacco Use Smoking Status *Q: Unknown Ever Smoked ED ROS GENERAL - Review of Systems Review Of Systems: See Below Constitutional: Denies: Fever, Chills, Malaise, Weakness, Fatigue, Decreased Appetite HEENT: Denies: Ear Pain, Sinus Problem, Throat Pain Respiratory: Reports: Shortness of Breath. Denies: Cough Cardiovascular: Denies: Chest Pain, Edema, Lightheadedness Endocrine: Denies: Fatigue GI/Abdominal: Reports: Abdominal Pain, Diarrhea. Denies: Constipation, Nausea, Vomiting : Reports: No Symptoms Musculoskeletal: Reports: No Symptoms Skin: Reports: No Symptoms Neurological: Reports: No Symptoms ED EXAM, GI/ABD - Physical Exam Exam: See Below Exam Limited By: No Limitations General Appearance: Alert, WD/WN, No Apparent Distress Ears: Normal External Exam, Normal TMs Nose: Normal Inspection, Normal Mucosa Throat/Mouth: Normal Inspection, Normal Oropharynx Head: Normocephalic Neck: Normal Inspection, Supple, Non-Tender Respiratory/Chest: No Respiratory Distress, Lungs Clear, Normal Breath Sounds Cardiovascular: Regular Rate, Rhythm GI/Abdominal Exam: Normal Bowel Sounds, Soft, Tender (diffusely throughout) Extremities: Normal Inspection, No Pedal Edema Neurological: Alert, Oriented Skin Exam: Warm, Dry Course - Vital Signs Last Recorded V/S: Last Vital Signs Temp 97 F 06/30/19 10:15 Pulse 84 06/30/19 10:15 Resp 20 06/30/19 10:15 BP 143/79 H 06/30/19 10:15 Pulse Ox 98 06/30/19 10:15 - Orders/Labs/Meds Labs: Laboratory Tests 06/30/19 06/30/19 06/30/19 Range/Units 10:43 10:43 11:31 WBC 7.1 (4.0-10.0) x10^3/uL RBC 4.88 (4.5-6.0) x10^6/uL Hgb 14.9 (14.0-18.0) g/dL Hct 45.0 (40.0-52.0) % MCV 92.2 (78.0-93.0) fL MCH 30.5 (26.0-32.0) pg MCHC 33.1 (32.0-36.0) g/dL RDW Coeff of Almaz 14.2 (10.0-15.0) % Plt Count 168 (130-400) x10^3/uL Neut % (Auto) 61.5 (50.0-80.0) % Lymph % (Auto) 24.5 L (25.0-50.0) % [place] % (Auto) 11.8 H (2.0-11.0) % Eos % (Auto) 1.8 (0.0-4.0) % Baso % (Auto) 0.4 (0.2-1.2) % Sodium 143 (136-145) mmol/L Potassium 4.4 (3.5-5.1) mmol/L Chloride 107 (98-107) mmol/L Carbon Dioxide 28 (21-32) mmol/L Anion Gap 12.4 (10-20) mmol/L BUN 26 H (7-18) mg/dL Creatinine 1.2 (0.70-1.30) mg/dL Est Cr Clr Drug Dosing TNP Estimated GFR (MDRD) > 60 Glucose 112 H (74-106) mg/dL Calcium 8.8 (8.5-10.1) mg/dL Corrected Calcium 9.36 (8.5-10.1) mg/dL Total Bilirubin 0.4 (0.2-1.0) mg/dL AST 15 (15-37) U/L ALT 25 (16-63) U/L Alkaline Phosphatase 87 (46-116) U/L C-Reactive Protein 1.5 H (<=0.9) mg/dL Total Protein 7.1 (6.4-8.2) g/dL Albumin 3.3 L (3.4-5.0) g/dL Globulin 3.8 Albumin/Globulin Ratio 0.87 Amylase 62 (25-115) U/L Lipase 208 (73-393) U/L Urine Color Yellow (YELLOW) Urine Appearance Clear (CLEAR) Urine pH 5.0 (5.0-8.0) Ur Specific [place] 1.025 Urine Protein Negative (NEGATIVE) mg/dL Urine Glucose (UA) Negative (NEGATIVE) mg/dL Urine Ketones Negative (NEGATIVE) mg/dL Urine Occult Blood Negative (NEGATIVE) Urine Nitrite Negative (NEGATIVE) Urine Bilirubin Negative (NEGATIVE) Urine Urobilinogen 0.2 (0.2) EU/dL Ur Leukocyte Esterase Negative (NEGATIVE) Meds: Medications Discontinued Medications Generic Name Dose Route Start Last Admin Trade Name Stanleyq PRN Reason Stop Dose Admin Iopamidol 100 ml 06/30/19 11:46 06/30/19 11:46 Isovue-300 (61%) IVPUSH 06/30/19 11:47 100 ml ONETIME ONE Administration - Re-Assessments/Exams Free Text/Narrative Re-Assessment/Exam: 06/30/19 12:15 Labs are all essentially normal. CT scan of abdomen is normal. Discussed with patient. Departure - Departure Time of Disposition: 12:16 Disposition: Home, Self-Care 01 Condition: Good Clinical Impression: Gastroenteritis - Discharge Information *PRESCRIPTION DRUG MONITORING PROGRAM REVIEWED*: No *COPY OF PRESCRIPTION DRUG MONITORING REPORT IN PATIENT MILEY: No Instructions: Viral Gastroenteritis, Adult Referrals: PCP,Not In Area [Primary Care Provider] - Forms: ED Department Discharge Additional Instructions: 1. Push fluids 2. Johnson, non spicy or greasy foods. May use BRAT diet to help slow down diarrhea.. Bananas, Rice, Applesauce and Colver. 3. Tylenol for discomfort 4. Follow up if any worsening symptoms Sepsis Event Note - Focused Exam Vital Signs: Vital Signs Temp Pulse Resp BP Pulse Ox 06/30/19 10:15 97 F 84 20 143/79 H 98 Date Exam was Performed: 06/30/19 Time Exam was Performed: 12:15
[2019-06-30 11:13] LABS: CHLORIDE,CL 107 mmol/L (98-107); SODIUM,NA 143 mmol/L (136-145)
[2019-06-30 11:14] LABS: ANION GAP 12.4 mmol/L (10-20)
[2019-06-30 11:46] VITALS: BP 143/79; PULSE 84
[2019-06-30] MEDS ORDERED: Iopamidol 612 MG/ML 100 ML Bottle IVPUSH ONE (11:46)
--- NOTE | 2019-06-30 12:11 | CT ---
[id number] CT/CT Abdomen Pelvis W IV EXAM: CT Abdomen Pelvis W IV CLINICAL DATA: ABDOMINAL PAIN. COMPARISON STUDY: None. FINDINGS: Lung bases are clear. The gallbladder surgically absent. The liver, spleen, pancreas, adrenal glands are unremarkable. There is a duplicated collecting system on the left. The kidneys otherwise unremarkable. No suspicious renal lesions. The appendix is not well-visualized however there are surgical clips in the expected location of the appendix consistent with prior appendectomy. No lymphadenopathy, free fluid, or pneumoperitoneum. Small fat-containing umbilical hernia. Scattered changes of spondylosis the spine. No fracture or osseous lesion. IMPRESSION: No definite acute CT findings within the abdomen or pelvis to explain the patient's symptoms. Raman Guo DO 06/30/19 1975 Thank you for allowing us to participate in the care of your patient.
== END 2019-06-30 12:30 | disposition home or self-care (01) ==
LOC: VM.ED 10:06
DX: K52.9 Noninfective gastroenteritis and colitis, unspecified (principal); I48.91 Unspecified atrial fibrillation; I25.10 Atherosclerotic heart disease of native coronary artery without angina pectoris; E78.00 Pure hypercholesterolemia, unspecified; Z79.82 Long term (current) use of aspirin; Z79.899 Other long term (current) drug therapy
CPT/HCPCS: 36415; 74177; 80053; 81003; 82150; 83690; 85025; 86140; 99284; Q9967

== ENCOUNTER 2020-05-02 10:59 | Emergency (ER) | payer MEDICARE, BC ==
[2020-05-02] MEDS ORDERED: Sodium Chloride 0.9% 10 ML Syringe FLUSH PRN (11:16)
--- NOTE | 2020-05-02 11:35 | CR ---
[id number] RAD/RAD Chest PA or AP 1V EXAM: SINGLE VIEW CHEST. INDICATION: SHORTNESS OF BREATH COMPARISON: CORRELATION IS MADE WITH MAY 11, 2017 FINDINGS: The lungs are clear The cardiac silhouette is prominent but stable IMPRESSION: NO PNEUMONIA OR EDEMA Dieter Kidd MD 05/02/20 [id number] Thank you for allowing us to participate in the care of your patient.
[2020-05-02 11:47] VITALS: BP 120/77; PULSE 103
[2020-05-02 12:05] LABS: ANION GAP 14.3 mmol/L (5-15); CHLORIDE,CL 105 mmol/L (98-107); SODIUM,NA 141 mmol/L (136-145)
[2020-05-02] MEDS: Ketorolac 15 MG/ML SDV IVPUSH ONE (12:19)
[2020-05-02] MEDS: methylPREDNISolone Sodium Succinate 125 MG/2 ML SDV IV ONE (12:19)
--- NOTE | 2020-05-02 12:37 | EDM.PDOC ---
ED HPI GENERAL MEDICAL PROBLEM - General Chief Complaint: Cardiovascular Problem Time Seen by Provider: 05/02/20 11:10 Source of Information: Reports: Patient, EMS, RN History Limitations: Reports: No Limitations - History of Present Illness INITIAL COMMENTS - FREE TEXT/NARRATIVE: Pt. presents to ER with complaints of respirophasic, sharp anterior chest pain and shortness of breath that started yesterday. He states that the discomfort is worse with movement. Denies any cough or chest congestion. No fever or chills. No nausea, vomiting, or diarrhea. Denies any ill contacts. Pt. states that the discomfort is mid-sternal. He denies any recent chest trauma. Pt. does have a history of cardiomyopathy and is due for an echo but this was cancelled due to covid 19. He has not been experiencing any shortness of breath prior to this, and feels that the dyspnea he is experiencing is due to the chest discomfort. Pt. also complains of a headache. Pt. denies any radiation of the discomfort into his jaw, arms, neck or back. Denies any hemoptysis. Denies any strenuous activity. He has not been doing any shovelling or engaging in any activity that could cause/exacerbate this complaint. He did complain of some lightheadedness/vertigo and "felt like passing out" earlier in the day. Onset Date: 05/01/20 Location: Reports: Chest Quality: Reports: Ache, Sharp Severity: Mild Associated Symptoms: Reports: Chest Pain, Headaches, Shortness of Breath. Denies: Confusion, Cough, Diaphoresis, Fever/Chills, Loss of Appetite, Malaise, Nausea/Vomiting, Rash, Seizure, Syncope, Weakness Headache Pain Score (Numeric/FACES): 6 Mid-Sternal Chest Pain Score (Numeric/FACES): 5 - Related Data Allergies Allergy/AdvReac Type Severity Reaction Status Date / Time No Known Drug Allergies Allergy Cannot Verified 05/02/20 11:19 Remember Home Meds: Home Meds Aspirin [Halfprin] 81 mg PO DAILY 05/25/13 [History] Albuterol [Proventil HFA] 2 inh INH Q4H PRN 12/03/14 [History] atorvaSTATin [Lipitor] 10 mg PO DAILY 05/23/18 [History] Metoprolol Succinate [Toprol Xl] 75 mg PO DAILY 01/31/19 [History] Amoxicillin 2,000 mg PO ASDIRECTED 05/02/20 [History] Clotrimazole [Lotrimin AF 1% Crm] 1 dose TOP BID PRN 05/02/20 [History] Ibuprofen 800 mg PO TID 05/02/20 [History] polyethylene glycoL 3350 [MiraLAX] 17 gm PO DAILY 05/02/20 [History] Past Medical History Cardiovascular History: Reports: Afib, CAD, High Cholesterol, Other (See Below) Other Cardiovascular History: Mitral valve repair Respiratory History: Reports: Bronchitis, Recurrent, Other (See Below) Other Respiratory History: wheezing Gastrointestinal History: Reports: GERD Psychiatric History: Reports: Developmental Delay - Past Surgical History Cardiovascular Surgical History: Reports: Valve Replacement GI Surgical History: Reports: Hernia Repair/Other Musculoskeletal Surgical History: Reports: Knee Replacement Social & Family History - Family History Family Medical History: No Pertinent Family History - Tobacco Use Tobacco Use Status *Q: Never Tobacco User ED ROS GENERAL - Review of Systems Review Of Systems: See Below Constitutional: Reports: No Symptoms. Denies: Fever, Chills, Malaise, Weakness, Fatigue, Diaphoresis HEENT: Reports: No Symptoms Respiratory: Reports: Shortness of Breath, Pleuritic Chest Pain Cardiovascular: Reports: Chest Pain, Lightheadedness. Denies: Blood Pressure Problem, Orthopnea, Palpitations, PND, Syncope Endocrine: Reports: No Symptoms GI/Abdominal: Reports: No Symptoms : Reports: No Symptoms Musculoskeletal: Reports: No Symptoms Skin: Reports: No Symptoms Neurological: Reports: No Symptoms Psychiatric: Reports: No Symptoms Hematologic/Lymphatic: Reports: No Symptoms Immunologic: Reports: No Symptoms ED EXAM, GENERAL - Physical Exam Exam: See Below Exam Limited By: No Limitations General Appearance: Alert, WD/WN, No Apparent Distress Throat/Mouth: Normal Inspection, Normal Lips, Normal Oropharynx, Normal Voice, No Airway Compromise Neck: Normal Inspection, Supple, Non-Tender Respiratory/Chest: No Respiratory Distress, Lungs Clear, Normal Breath Sounds, No Accessory Muscle Use, Chest Non-Tender Cardiovascular: Normal Peripheral Pulses, Regular Rate, Rhythm, No Edema, No JVD GI/Abdominal: Soft, Non-Tender, No Distention, No Mass (Male) Exam: Deferred Rectal (Males) Exam: Deferred Back Exam: Normal Inspection, Full Range of Motion Extremities: Normal Inspection, Normal Range of Motion, Non-Tender, No Pedal Edema, Normal Capillary Refill Neurological: Alert, Oriented, CN II-XII Intact, Normal Cognition, Normal Reflexes, No Motor/Sensory Deficits Psychiatric: Normal Affect, Normal Mood Skin Exam: Warm, Dry, Intact, Normal Color, No Rash Lymphatic: No Adenopathy #1 Interpretation Rhythm: NSR QRS: Normal DE/PQ Interval: 1st degree AV block Comparison: No Change Course - Vital Signs Last Recorded V/S: Last Vital Signs Temp 35.8 C L 05/02/20 11:05 Pulse 103 H 05/02/20 11:05 Resp 16 05/02/20 11:05 BP 120/77 05/02/20 11:05 Pulse Ox 98 05/02/20 11:05 - Orders/Labs/Meds Orders: Active Orders 24 hr Category Date Time Status EKG Documentation Completion [RC] STAT Care 05/02/20 11:17 Active Sodium Chloride 0.9% [Saline Flush] Med 05/02/20 11:16 Active 10 ml FLUSH ASDIRECTED PRN Peripheral IV Insertion Adult [OM.PC] Routine Oth 05/02/20 11:18 Ordered Medication Orders Sodium Chloride (Saline Flush) 10 ml FLUSH ASDIRECTED PRN PRN Reason: Keep Vein Open Labs: Laboratory Tests 05/02/20 05/02/20 05/02/20 Range/Units 11:30 11:30 11:30 WBC 6.8 (4.0-10.0) x10^3/uL RBC 4.91 (4.5-6.0) x10^6/uL Hgb 15.2 (14.0-18.0) g/dL Hct 45.4 (40.0-52.0) % MCV 92.5 (78.0-93.0) fL MCH 31.0 (26.0-32.0) pg MCHC 33.5 (32.0-36.0) g/dL RDW Coeff of Almaz 14.1 (10.0-15.0) % Plt Count 156 (130-400) x10^3/uL Neut % (Auto) 63.8 (50.0-80.0) % Lymph % (Auto) 23.1 L (25.0-50.0) % [place] % (Auto) 11.0 (2.0-11.0) % Eos % (Auto) 1.8 (0.0-4.0) % Baso % (Auto) 0.3 (0.2-1.2) % PT 10.4 (9.5-12.3) SEC INR 1.0 L (2.0-3.5) APTT (25.6-32.8) SEC D-Dimer, Quantitative (<=0.58) mg/LFEU Sodium 141 (136-145) mmol/L Potassium 4.3 (3.5-5.1) mmol/L Chloride 105 (98-107) mmol/L Carbon Dioxide 26 (21-32) mmol/L Anion Gap 14.3 (5-15) mmol/L BUN 23 H (7-18) mg/dL Creatinine 1.1 (0.70-1.30) mg/dL Est Cr Clr Drug Dosing 66.36 mL/min Estimated GFR (MDRD) > 60 Glucose 105 (74-106) mg/dL Calcium 8.5 (8.5-10.1) mg/dL Corrected Calcium 9.22 (8.5-10.1) mg/dL Magnesium 2.1 (1.8-2.4) mg/dL Total Bilirubin 0.3 (0.2-1.0) mg/dL AST 17 (15-37) U/L ALT 29 (16-63) U/L Alkaline Phosphatase 83 (46-116) U/L POC Troponin I (0.00-0.08) ng/mL C-Reactive Protein 1.5 H (<=0.9) mg/dL NT-Pro-B Natriuret Pep 426 H (<=125) pg/mL Total Protein 7.1 (6.4-8.2) g/dL Albumin 3.1 L (3.4-5.0) g/dL Globulin 4.0 g/dL Albumin/Globulin Ratio 0.78 05/02/20 05/02/20 05/02/20 Range/Units 11:30 11:30 11:33 WBC (4.0-10.0) x10^3/uL RBC (4.5-6.0) x10^6/uL Hgb (14.0-18.0) g/dL Hct (40.0-52.0) % MCV (78.0-93.0) fL MCH (26.0-32.0) pg MCHC (32.0-36.0) g/dL RDW Coeff of Almaz (10.0-15.0) % Plt Count (130-400) x10^3/uL Neut % (Auto) (50.0-80.0) % Lymph % (Auto) (25.0-50.0) % [place] % (Auto) (2.0-11.0) % Eos % (Auto) (0.0-4.0) % Baso % (Auto) (0.2-1.2) % PT (9.5-12.3) SEC INR (2.0-3.5) APTT 29.8 (25.6-32.8) SEC D-Dimer, Quantitative 0.56 (<=0.58) mg/LFEU Sodium (136-145) mmol/L Potassium (3.5-5.1) mmol/L Chloride (98-107) mmol/L Carbon Dioxide (21-32) mmol/L Anion Gap (5-15) mmol/L BUN (7-18) mg/dL Creatinine (0.70-1.30) mg/dL Est Cr Clr Drug Dosing mL/min Estimated GFR (MDRD) Glucose (74-106) mg/dL Calcium (8.5-10.1) mg/dL Corrected Calcium (8.5-10.1) mg/dL Magnesium (1.8-2.4) mg/dL Total Bilirubin (0.2-1.0) mg/dL AST (15-37) U/L ALT (16-63) U/L Alkaline Phosphatase (46-116) U/L POC Troponin I 0.00 (0.00-0.08) ng/mL C-Reactive Protein (<=0.9) mg/dL NT-Pro-B Natriuret Pep (<=125) pg/mL Total Protein (6.4-8.2) g/dL Albumin (3.4-5.0) g/dL Globulin g/dL Albumin/Globulin Ratio Meds: Medications Generic Name Dose Route Start Last Admin Trade Name Freq PRN Reason Stop Dose Admin Sodium Chloride 10 ml 05/02/20 11:16 Saline Flush FLUSH ASDIRECTED PRN Keep Vein Open Discontinued Medications Generic Name Dose Route Start Last Admin Trade Name Taylor PRN Reason Stop Dose Admin Ketorolac Tromethamine 15 mg 05/02/20 12:11 05/02/20 12:19 Toradol IVPUSH 05/02/20 12:12 15 mg ONETIME ONE Administration Methylprednisolone Sodium Succinate 125 mg 05/02/20 12:12 05/02/20 12:19 Solu-Medrol IV 05/02/20 12:13 125 mg ONETIME ONE Administration - Radiology Interpretation Free Text/Narrative:: chest x-ray negative for acute pathology Departure - Departure Time of Disposition: 12:44 Disposition: Home, Self-Care 01 Condition: Good Clinical Impression: Atypical chest pain Instructions: Nonspecific Chest Pain, Adult, [id number], Prednisone tablets Referrals: Latricia Thomas [employer] [Primary Care Provider] - Forms: ED Department Discharge Additional Instructions: Prednisone 20mg 2 tabs daily for 5 days Ibuprofen 200mg 2 tabs every 6 hours as needed for pain, starting this evening You can use a hot pack/heating pad on your chest to help with discomfort. Work on taking deep breaths, even if it hurts, to prevent getting pneumonia. Recheck in clinic in 7-10 days, sooner if not gradually improving. Sepsis Event Note (ED) - Evaluation Sepsis Screening Result: No Definite Risk - Focused Exam Vital Signs: Vital Signs Temp Pulse Resp BP Pulse Ox 05/02/20 11:05 35.8 C L 103 H 16 120/77 98 - Problem List Review Problem List Initiated/Reviewed/Updated: Yes - My Orders Last 24 Hours: My Active Orders 05/02/20 11:16 Sodium Chloride 0.9% [Saline Flush] 10 ml FLUSH ASDIRECTED PRN 05/02/20 11:17 EKG Documentation Completion [RC] STAT 05/02/20 11:18 Peripheral IV Insertion Adult [OM.PC] Routine - Assessment/Plan Last 24 Hours: My Active Orders 05/02/20 11:16 Sodium Chloride 0.9% [Saline Flush] 10 ml FLUSH ASDIRECTED PRN 05/02/20 11:17 EKG Documentation Completion [RC] STAT 05/02/20 11:18 Peripheral IV Insertion Adult [OM.PC] Routine Plan: Prednisone 20mg 2 tabs daily for 5 days Ibuprofen 200mg 2 tabs every 6 hours as needed for pain, starting this evening You can use a hot pack/heating pad on your chest to help with discomfort. Work on taking deep breaths, even if it hurts, to prevent getting pneumonia. Recheck in clinic in 7-10 days, sooner if not gradually improving.
== END 2020-05-02 12:45 | disposition home or self-care (01) ==
LOC: VM.ED 10:59
DX: R07.89 Other chest pain (principal); I48.91 Unspecified atrial fibrillation; I25.10 Atherosclerotic heart disease of native coronary artery without angina pectoris; E78.00 Pure hypercholesterolemia, unspecified; Z79.82 Long term (current) use of aspirin; Z79.899 Other long term (current) drug therapy
CPT/HCPCS: 36415; 71045; 80053; 83735; 83880; 84484; 85025; 85379; 85610; 85730; 86140; 93005; 93010; 96374; 96375; 99284; 99285-25; J1885; J2930

== ENCOUNTER 2020-07-08 10:26 | Emergency (ER) | payer MEDICARE, BC ==
[2020-07-08 10:40] VITALS: BP 115/76; PULSE 87
[2020-07-08] MEDS ORDERED: Ketorolac 30 MG/ML SDV IVPUSH ONE (10:51)
[2020-07-08] MEDS ORDERED: Sodium Chloride 0.9% 10 ML Syringe FLUSH PRN (10:51)
[2020-07-08] MEDS ORDERED: Lactated Ringers 1,000 ML IV ONE (10:51)
[2020-07-08] MEDS ORDERED: Ondansetron 4 MG/2 ML SDV IVPUSH ONE (10:51)
--- NOTE | 2020-07-08 10:56 | EDM.PDOC ---
ED HPI GENERAL MEDICAL PROBLEM - General Chief Complaint: Abdominal Pain Time Seen by Provider: 07/08/20 10:34 Source of Information: Reports: Patient, EMS - History of Present Illness INITIAL COMMENTS - FREE TEXT/NARRATIVE: David is a 70 y/o male who is brought to the ER by EMS with abdominal pain that started yesterday. He reports the pain came on yesterday afternoon and was worse with movement. He describes it as "sharp and stabbing" and points to it in the left lower abdominal region. He did have a hernia repaired a littel over a year ago at [facility] in [place]. He rates the pain 8/10. He did eat supper last night, was a but nauseated, but did not vomit. Stools are normal. This AM he reported a headache and then a mild SOB, but that seems to have gotten better on arrival to the ER. He has not taken anything for the pain, but it is worse when he moves. Left Lower Abdomen Pain Score (Numeric/FACES): 8 Headache Pain Score (Numeric/FACES): 7 - Related Data Allergies Allergy/AdvReac Type Severity Reaction Status Date / Time No Known Drug Allergies Allergy Cannot Verified 07/08/20 10:42 Remember Home Meds: Home Meds Aspirin [Halfprin] 81 mg PO DAILY 05/25/13 [History] Albuterol [Proventil HFA] 2 inh INH Q4H PRN 12/03/14 [History] atorvaSTATin [Lipitor] 10 mg PO DAILY 05/23/18 [History] Metoprolol Succinate [Toprol Xl] 75 mg PO DAILY 01/31/19 [History] Amoxicillin 2,000 mg PO ASDIRECTED 05/02/20 [History] Clotrimazole [Lotrimin AF 1% Crm] 1 dose TOP BID PRN 05/02/20 [History] Ibuprofen 800 mg PO TID 05/02/20 [History] polyethylene glycoL 3350 [MiraLAX] 17 gm PO DAILY 05/02/20 [History] Past Medical History Cardiovascular History: Reports: Afib, CAD, High Cholesterol, Other (See Below) Other Cardiovascular History: Mitral valve repair Respiratory History: Reports: Bronchitis, Recurrent, Other (See Below) Other Respiratory History: wheezing Gastrointestinal History: Reports: GERD Psychiatric History: Reports: Developmental Delay - Past Surgical History Cardiovascular Surgical History: Reports: Valve Replacement GI Surgical History: Reports: Hernia Repair/Other Musculoskeletal Surgical History: Reports: Knee Replacement Social & Family History - Family History Family Medical History: No Pertinent Family History Review of Systems - Review of Systems Review Of Systems: See Below Constitutional: Reports: No Symptoms Eyes: Reports: No Symptoms Ears: Reports: No Symptoms Nose: Reports: No Symptoms Mouth/Throat: Reports: No Symptoms Respiratory: Reports: Shortness of Breath Cardiovascular: Reports: No Symptoms GI/Abdominal: Reports: Abdominal Pain, Nausea. Denies: Decreased Appetite, Diarrhea, Vomiting Genitourinary: Reports: No Symptoms Musculoskeletal: Reports: No Symptoms Skin: Reports: No Symptoms Neurological: Reports: Headache Psychiatric: Reports: No Symptoms ED EXAM, GENERAL - Physical Exam Exam: See Below Exam Limited By: No Limitations General Appearance: Alert, WD/WN, No Apparent Distress (Elderly male.), Obese Eye Exam: Bilateral Eye: PERRL Ears: Normal External Exam, Hearing Grossly Normal Nose: Normal Inspection, Normal Mucosa Throat/Mouth: Normal Inspection, Normal Voice Head: Atraumatic, Normocephalic Neck: Supple Respiratory/Chest: No Respiratory Distress, Lungs Clear, Chest Non-Tender Cardiovascular: Normal Peripheral Pulses, Regular Rate, Rhythm, No Murmur GI/Abdominal: Normal Bowel Sounds, Soft, No Distention, Tender (Note tenderness in the left lower abd region, note well healed midline surgical scar.) (Male) Exam: Deferred Rectal (Males) Exam: Deferred Extremities: Normal Inspection, Normal Capillary Refill Neurological: Alert, Oriented, CN II-XII Intact, Normal Gait, No Motor/Sensory Deficits Psychiatric: Normal Affect Skin Exam: Warm, Dry, Intact, Normal Color, No Rash Course - Vital Signs Text/Narrative:: 1034 The patient was seen by the [employer]. Labs ordered. He was given a liter of LR and Toradol 30mg IVP and Zofran 4mg IVP. 1130 Labs reviewed. CBC neg, CMP vqlsbhw=519; Amylase=52, Abbzgt=197; UA neg; CRP=0.8; CT pending. Patient reports he is comfortable this time and no further abdominal pain or headache. 1255 CT results reviewed. Note bilateral inguinal hernias. Results discussed with pt, will have him see his PCP to schedule was a surgeon as needed. He was given written instructions and left the ER in stable condition. Last Recorded V/S: Last Vital Signs Temp 36.6 C 07/08/20 10:30 Pulse 87 07/08/20 10:30 Resp 18 07/08/20 10:30 BP 115/76 07/08/20 10:30 Pulse Ox 97 07/08/20 10:30 - Orders/Labs/Meds Orders: Active Orders 24 hr Category Date Time Status Sodium Chloride 0.9% [Saline Flush] Med 07/08/20 10:51 Active 10 ml FLUSH ASDIRECTED PRN Saline Lock Insert [OM.PC] Stat Oth 07/08/20 10:51 Ordered Medication Orders Sodium Chloride (Sodium Chloride 0.9% 10 Ml Syringe) 10 ml FLUSH ASDIRECTED PRN PRN Reason: Keep Vein Open Labs: Laboratory Tests 07/08/20 07/08/20 07/08/20 Range/Units 11:05 11:05 11:19 WBC 6.2 (4.0-10.0) x10^3/uL RBC 4.82 (4.5-6.0) x10^6/uL Hgb 15.1 (14.0-18.0) g/dL Hct 44.7 (40.0-52.0) % MCV 92.7 (78.0-93.0) fL MCH 31.3 (26.0-32.0) pg MCHC 33.8 (32.0-36.0) g/dL RDW Coeff of Almaz 14.1 (10.0-15.0) % Plt Count 152 (130-400) x10^3/uL Neut % (Auto) 67.2 (50.0-80.0) % Lymph % (Auto) 20.6 L (25.0-50.0) % [place] % (Auto) 10.5 (2.0-11.0) % Eos % (Auto) 1.4 (0.0-4.0) % Baso % (Auto) 0.3 (0.2-1.2) % Sodium 141 (136-145) mmol/L Potassium 4.2 (3.5-5.1) mmol/L Chloride 104 (98-107) mmol/L Carbon Dioxide 28 (21-32) mmol/L Anion Gap 13.2 (5-15) mmol/L BUN 16 (7-18) mg/dL Creatinine 1.1 (0.70-1.30) mg/dL Est Cr Clr Drug Dosing TNP Estimated GFR (MDRD) > 60 Glucose 105 H (70-99) mg/dL Calcium 8.7 (8.5-10.1) mg/dL Corrected Calcium 9.42 (8.5-10.1) mg/dL Magnesium 2.0 (1.8-2.4) mg/dL Total Bilirubin 0.5 (0.2-1.0) mg/dL AST 16 (15-37) U/L ALT 24 (16-63) U/L Alkaline Phosphatase 80 (46-116) U/L C-Reactive Protein 0.8 (<=0.9) mg/dL Total Protein 6.6 (6.4-8.2) g/dL Albumin 3.1 L (3.4-5.0) g/dL Globulin 3.5 Albumin/Globulin Ratio 0.89 Amylase 52 (25-115) U/L Lipase 150 (73-393) U/L Urine Color Yellow (YELLOW) Urine Appearance Clear (CLEAR) Urine pH 5.5 (5.0-8.0) Ur Specific [place] >=1.030 Urine Protein Negative (NEGATIVE) mg/dL Urine Glucose (UA) Negative (NEGATIVE) mg/dL Urine Ketones Negative (NEGATIVE) mg/dL Urine Occult Blood Negative (NEGATIVE) Urine Nitrite Negative (NEGATIVE) Urine Bilirubin Negative (NEGATIVE) Urine Urobilinogen 1.0 (0.2) EU/dL Ur Leukocyte Esterase Negative (NEGATIVE) Meds: Medications Generic Name Dose Route Start Last Admin Trade Name Freq PRN Reason Stop Dose Admin Sodium Chloride 10 ml 07/08/20 10:51 Sodium Chloride 0.9% 10 Ml Syringe FLUSH ASDIRECTED PRN Keep Vein Open Discontinued Medications Generic Name Dose Route Start Last Admin Trade Name Freq PRN Reason Stop Dose Admin Lactated Ringer's 1,000 mls @ 999 mls/hr 07/08/20 10:51 07/08/20 11:11 Ringers, Lactated IV 07/08/20 11:51 999 mls/hr ONETIME ONE Administration Iopamidol 100 ml 07/08/20 11:33 07/08/20 11:54 Iopamidol 612 Mg/Ml 100 Ml Bottle IVPUSH 07/08/20 11:34 100 ml ONETIME ONE Administration Ketorolac Tromethamine 30 mg 07/08/20 10:51 07/08/20 11:11 Ketorolac 30 Mg/Ml Sdv IVPUSH 07/08/20 10:52 30 mg ONETIME ONE Administration Ondansetron HCl 4 mg 07/08/20 10:51 07/08/20 11:14 Ondansetron 4 Mg/2 Ml Sdv IVPUSH 07/08/20 10:52 4 mg ONETIME ONE Administration - Radiology Interpretation Free Text/Narrative:: No acute findings, note bilateral inguinal hernias. CT Results Date: 07/08/20 Departure - Departure Time of Disposition: 12:53 Disposition: Home, Self-Care 01 Condition: Good Clinical Impression: Bilateral inguinal hernia Qualifiers: Obstruction and gangrene presence: without obstruction or gangrene Recurrence: not specified as recurrent Qualified Code(s): K40.20 - Bilateral inguinal hernia, without obstruction or gangrene, not specified as recurrent - Discharge Information Instructions: Inguinal Hernia, Adult, [id number] Forms: ED Department Discharge Sepsis Event Note (ED) - Evaluation Sepsis Screening Result: No Definite Risk - Focused Exam Vital Signs: Vital Signs Temp Pulse Resp BP Pulse Ox 07/08/20 10:30 36.6 C 87 18 115/76 97 - My Orders Last 24 Hours: My Active Orders 07/08/20 10:51 Sodium Chloride 0.9% [Saline Flush] 10 ml FLUSH ASDIRECTED PRN Saline Lock Insert [OM.PC] Stat - Assessment/Plan Last 24 Hours: My Active Orders 07/08/20 10:51 Sodium Chloride 0.9% [Saline Flush] 10 ml FLUSH ASDIRECTED PRN Saline Lock Insert [OM.PC] Stat Assessment:: 1)Bilateral Inguinal Hernias Plan: -Make an appt with your PCP to get a referral to a surgeon as needed to have the hernia's evaluated for possible surgical repair if needed -Use ibuprofen or acetaminophen as needed for pain -A prescription for an abdominal binder was written as this may help with your discomfort. You can get this at a local pharmacy or [employer] medical equipment store. -Return to the ER as needed
[2020-07-08 11:30] LABS: ANION GAP 13.2 mmol/L (5-15); CHLORIDE,CL 104 mmol/L (98-107); SODIUM,NA 141 mmol/L (136-145)
[2020-07-08] MEDS ORDERED: Iopamidol 612 MG/ML 100 ML Bottle IVPUSH ONE (11:33)
--- NOTE | 2020-07-08 12:40 | CT ---
[id number] CT/CT Abdomen Pelvis W IV EXAM: ABDOMEN AND PELVIS CT WITH CONTRAST INDICATION: LEFT LOWER QUADRANT PAIN, HISTORY OF HERNIA. COMPARISON: June 30, 2019. DISCUSSION: Small fat-containing bilateral inguinal hernias. Prior cholecystectomy. The liver, spleen, pancreas, adrenal glands, kidneys, small bowel and large bowel are normal in appearance. The appendix is not identified, but there are no secondary changes to suggest acute appendicitis. Prior sternotomy. Cardiomegaly. The imaged lower chest is otherwise unremarkable. IMPRESSION: 1. No acute findings. 2. Small fat-containing bilateral inguinal hernias. Zoran Van MD 07/08/20 [id number] Thank you for allowing us to participate in the care of your patient.
== END 2020-07-08 13:04 | disposition home or self-care (01) ==
LOC: VM.ED 10:26
DX: K40.20 Bilateral inguinal hernia, without obstruction or gangrene, not specified as recurrent (principal); I48.91 Unspecified atrial fibrillation; I25.10 Atherosclerotic heart disease of native coronary artery without angina pectoris; E78.00 Pure hypercholesterolemia, unspecified; Z79.82 Long term (current) use of aspirin; Z79.899 Other long term (current) drug therapy
CPT/HCPCS: 36415; 74177; 80053; 81003; 82150; 83690; 83735; 85025; 86140; 96374; 96375; 99284; 99285-25; J1885; J2405; J7120; Q9967

== ENCOUNTER 2020-07-25 09:34 | Emergency (ER) | payer MEDICARE, BC ==
[2020-07-25] MEDS ORDERED: Aspirin 81 MG Tab.Chew PO ONE (10:12)
[2020-07-25] MEDS ORDERED: Sodium Chloride 0.9% 10 ML Syringe FLUSH PRN (10:12)
[2020-07-25] MEDS ORDERED: GI Cocktail Oral Solution 30 ML PO ONE (10:12)
--- NOTE | 2020-07-25 10:18 | EDM.PDOC ---
ED HPI GENERAL MEDICAL PROBLEM - General Chief Complaint: Chest Pain Stated Complaint: CHEST PAIN Time Seen by Provider: 07/25/20 10:09 Source of Information: Reports: Patient - History of Present Illness INITIAL COMMENTS - FREE TEXT/NARRATIVE: David is a 69 y/o male who comes to the ER with midsternal chest pain that he reports started last night while he was watching TV. He denies that he was doing anything when the pain started, but reported that it is "sharp" and "comes and goes". He did not get sweaty or vomit. Chest Pain Score (Numeric/FACES): 7 - Related Data Allergies Allergy/AdvReac Type Severity Reaction Status Date / Time No Known Drug Allergies Allergy Cannot Verified 07/25/20 09:51 Remember Home Meds: Home Meds Aspirin [Halfprin] 81 mg PO DAILY 05/25/13 [History] Albuterol [Proventil HFA] 2 inh INH Q4H PRN 12/03/14 [History] atorvaSTATin [Lipitor] 10 mg PO DAILY 05/23/18 [History] Metoprolol Succinate [Toprol Xl] 75 mg PO DAILY 01/31/19 [History] Amoxicillin 2,000 mg PO ASDIRECTED 05/02/20 [History] Clotrimazole [Lotrimin AF 1% Crm] 1 dose TOP BID PRN 05/02/20 [History] Ibuprofen 800 mg PO TID 05/02/20 [History] polyethylene glycoL 3350 [MiraLAX] 17 gm PO DAILY 05/02/20 [History] Past Medical History HEENT History: Reports: Cataract Cardiovascular History: Reports: Afib, CAD, Cardiomyopathy, High Cholesterol, Other (See Below) Other Cardiovascular History: Mitral valve repair Respiratory History: Reports: Bronchitis, Recurrent, Other (See Below) Other Respiratory History: wheezing Gastrointestinal History: Reports: GERD Psychiatric History: Reports: Developmental Delay - Past Surgical History HEENT Surgical History: Reports: Tonsillectomy Cardiovascular Surgical History: Reports: Valve Replacement GI Surgical History: Reports: Hernia Repair/Other Musculoskeletal Surgical History: Reports: Knee Replacement Social & Family History - Family History Family Medical History: No Pertinent Family History - Tobacco Use Tobacco Use Status *Q: Former Tobacco User Used Tobacco, but Quit: Yes Month/Year Tobacco Last Used: 1989 - Recreational Drug Use Recreational Drug Use: No Review of Systems - Review of Systems Review Of Systems: See Below Constitutional: Reports: No Symptoms Eyes: Reports: No Symptoms Ears: Reports: No Symptoms Nose: Reports: No Symptoms Mouth/Throat: Reports: No Symptoms Respiratory: Reports: No Symptoms Cardiovascular: Reports: Chest Pain GI/Abdominal: Reports: No Symptoms Genitourinary: Reports: No Symptoms Musculoskeletal: Reports: No Symptoms Skin: Reports: No Symptoms Neurological: Reports: No Symptoms Psychiatric: Reports: No Symptoms ED EXAM, GENERAL - Physical Exam Exam: See Below Exam Limited By: No Limitations General Appearance: Alert, WD/WN, No Apparent Distress (Adult male) Eye Exam: Bilateral Eye: PERRL Ears: Normal Canal, Hearing Grossly Normal Nose: Normal Inspection, Normal Mucosa Throat/Mouth: Normal Inspection, Normal Voice Head: Atraumatic, Normocephalic Neck: Supple Respiratory/Chest: No Respiratory Distress, Lungs Clear, Normal Breath Sounds, Chest Non-Tender Cardiovascular: Normal Peripheral Pulses, Regular Rate, Rhythm, No Murmur GI/Abdominal: Normal Bowel Sounds, Soft (Male) Exam: Deferred Rectal (Males) Exam: Deferred Back Exam: Normal Inspection Extremities: Normal Inspection, Normal Range of Motion, Normal Capillary Refill Neurological: Alert, Oriented, CN II-XII Intact, Normal Reflexes Psychiatric: Normal Affect, Normal Mood Skin Exam: Warm, Dry, Intact, Normal Color Lymphatic: No Adenopathy #1 Interpretation EKG Date: 07/25/20 Time: 09:38 Rhythm: NSR Rate (Beats/Min): 87 [place]: Normal P-Wave: Present QRS: Normal ST-T: Normal QT: Normal EKG Interpretation Comments: SR with PVC noted Course - Vital Signs Text/Narrative:: 1009 The patient was seen by the INORGANIC CHEMIST. Labs and EKG were done. He was given ASA 324mg po and a GI Cocktail 30ml po. 1125 Labs reviewed. CBC neg. CMP BUN=20; Trop=8; PT=11.0, INR=1.0. Reports mi nimal discomfort in chest. Troponin negative. Doubt cardiac etiology since pain started more than 12 hours prior. Results discussed with patient. Toradol 30mg IM ordered for chest wall pain. 1200 Patient reports complete resolution of pain in his chest region. Will send home with instructions for Chest Wall Pain. He was given discharge instructions and left the ER in stable condition. Last Recorded V/S: Last Vital Signs Temp 36.2 C 07/25/20 09:52 Pulse 72 07/25/20 11:36 Resp 15 07/25/20 11:36 BP 123/70 07/25/20 11:36 Pulse Ox 97 07/25/20 11:36 - Orders/Labs/Meds Orders: Active Orders 24 hr Category Date Time Status EKG Documentation Completion [RC] STAT Care 07/25/20 10:12 Active Sodium Chloride 0.9% [Saline Flush] Med 07/25/20 10:12 Active 10 ml FLUSH ASDIRECTED PRN Saline Lock Insert [OM.PC] Stat Oth 07/25/20 10:12 Ordered Medication Orders Sodium Chloride (Sodium Chloride 0.9% 10 Ml Syringe) 10 ml FLUSH ASDIRECTED PRN PRN Reason: Keep Vein Open Labs: Laboratory Tests 07/25/20 07/25/20 07/25/20 Range/Units 10:28 10:28 10:28 WBC 5.5 (4.0-10.0) x10^3/uL RBC 4.69 (4.5-6.0) x10^6/uL Hgb 14.8 (14.0-18.0) g/dL Hct 43.6 (40.0-52.0) % MCV 93.0 (78.0-93.0) fL MCH 31.6 (26.0-32.0) pg MCHC 33.9 (32.0-36.0) g/dL RDW Coeff of Almaz 13.9 (10.0-15.0) % Plt Count 136 (130-400) x10^3/uL Add Manual Diff Yes Neutrophils % (Manual) 55 (50-80) % Band Neutrophils % 5 (0-6) % Lymphocytes % (Manual) 29 (25-50) % Monocytes % (Manual) 2 (2-11) % Eosinophils % (Manual) 9 H (0-4) % Platelet Estimate Adequate Anisocytosis 1+ slight H PT 11.0 (9.9-12.5) SEC INR 1.0 L (2.0-3.5) APTT 26.9 (25.6-32.8) SEC Sodium 146 H (136-145) mmol/L Potassium 4.7 (3.5-5.1) mmol/L Chloride 108 H (98-107) mmol/L Carbon Dioxide 31 (21-32) mmol/L Anion Gap 11.7 (5-15) mmol/L BUN 20 H (7-18) mg/dL Creatinine 1.0 (0.70-1.30) mg/dL Est Cr Clr Drug Dosing 73.00 mL/min Estimated GFR (MDRD) > 60 Glucose 98 (70-99) mg/dL Calcium 8.5 (8.5-10.1) mg/dL Corrected Calcium 9.22 (8.5-10.1) mg/dL Magnesium 2.0 (1.8-2.4) mg/dL Total Bilirubin 0.5 (0.2-1.0) mg/dL AST 20 (15-37) U/L ALT 21 (16-63) U/L Alkaline Phosphatase 79 (46-116) U/L Troponin I High Sens 8 (<=76) ng/L Total Protein 6.2 L (6.4-8.2) g/dL Albumin 3.1 L (3.4-5.0) g/dL Globulin 3.1 Albumin/Globulin Ratio 1.00 Meds: Medications Generic Name Dose Route Start Last Admin Trade Name Freq PRN Reason Stop Dose Admin Sodium Chloride 10 ml 07/25/20 10:12 Sodium Chloride 0.9% 10 Ml Syringe FLUSH ASDIRECTED PRN Keep Vein Open Discontinued Medications Generic Name Dose Route Start Last Admin Trade Name Freq PRN Reason Stop Dose Admin Al Hydroxide/Mg Hydroxide 30 ml 07/25/20 10:12 07/25/20 10:26 Gi Cocktail Oral Solution 30 Ml PO 07/25/20 10:13 30 ml ONETIME ONE Administration Aspirin 324 mg 07/25/20 10:12 07/25/20 10:26 Aspirin 81 Mg Tab.Chew PO 07/25/20 10:13 324 mg ONETIME ONE Administration Ketorolac Tromethamine 30 mg 07/25/20 11:27 07/25/20 11:34 Ketorolac 30 Mg/Ml Sdv IM 07/25/20 11:28 30 mg ONETIME ONE Administration Departure - Departure Time of Disposition: 12:01 Disposition: Home, Self-Care 01 Condition: Good Clinical Impression: Anterior chest wall pain - Discharge Information *PRESCRIPTION DRUG MONITORING PROGRAM REVIEWED*: Not Applicable *COPY OF PRESCRIPTION DRUG MONITORING REPORT IN PATIENT MILEY: Not Applicable Instructions: Nonspecific Chest Pain, Adult Referrals: PCP,Not In Area [Primary Care Provider] - Forms: ED Department Discharge Sepsis Event Note (ED) - Evaluation Sepsis Screening Result: No Definite Risk - Focused Exam Vital Signs: Vital Signs Temp Pulse Resp BP Pulse Ox 07/25/20 11:36 72 15 123/70 97 07/25/20 09:52 36.2 C 83 14 125/75 96 - My Orders Last 24 Hours: My Active Orders 07/25/20 10:12 EKG Documentation Completion [RC] STAT Sodium Chloride 0.9% [Saline Flush] 10 ml FLUSH ASDIRECTED PRN Saline Lock Insert [OM.PC] Stat - Assessment/Plan Last 24 Hours: My Active Orders 07/25/20 10:12 EKG Documentation Completion [RC] STAT Sodium Chloride 0.9% [Saline Flush] 10 ml FLUSH ASDIRECTED PRN Saline Lock Insert [OM.PC] Stat Assessment:: 1)Anterior Chest Wall Pain Plan: -Resume home medications -Use ice/heat as needed to your chest region -Follow up with your Primary Care Provider if you symptoms persist or return to the ER for any concerns
[2020-07-25 10:52] LABS: PTT,PARTIAL THROMBOPLSTIN TIME 26.9 SEC (25.6-32.8)
[2020-07-25 11:11] LABS: CHLORIDE,CL 108 mmol/L (98-107); SODIUM,NA 146 mmol/L (136-145)
[2020-07-25 11:12] LABS: ANION GAP 11.7 mmol/L (5-15)
[2020-07-25] MEDS ORDERED: Ketorolac 30 MG/ML SDV IM ONE (11:27)
[2020-07-25 12:07] VITALS: BP 124/73; PULSE 69
== END 2020-07-25 12:05 | disposition home or self-care (01) ==
LOC: VM.ED 09:34
DX: R07.89 Other chest pain (principal); I48.91 Unspecified atrial fibrillation; I25.10 Atherosclerotic heart disease of native coronary artery without angina pectoris; E78.00 Pure hypercholesterolemia, unspecified; Z79.82 Long term (current) use of aspirin; Z79.899 Other long term (current) drug therapy; Z87.891 Personal history of nicotine dependence
CPT/HCPCS: 36415; 80053; 83735; 84484; 85025; 85610; 85730; 93005; 93010; 96372; 99284; 99285; A9270; J1885

== ENCOUNTER 2020-10-10 06:52 | Emergency (ER) | payer MEDICARE, BC ==
[2020-10-10] MEDS ORDERED: Sodium Chloride 0.9% 10 ML Syringe FLUSH PRN (07:17)
[2020-10-10] MEDS ORDERED: Ondansetron 4 MG/2 ML SDV IVPUSH ONE (07:18)
[2020-10-10] MEDS ORDERED: fentaNYL 100 MCG/2 ML SDV IVPUSH ONE (07:18)
--- NOTE | 2020-10-10 07:32 | EDM.PDOC ---
ED HPI GENERAL MEDICAL PROBLEM - General Stated Complaint: ER Time Seen by Provider: 10/10/20 07:14 Source of Information: Reports: Patient History Limitations: Reports: No Limitations - History of Present Illness INITIAL COMMENTS - FREE TEXT/NARRATIVE: David is a 69 y/o male who comes to the ER via EMS for abdominal pain. He reports that he has been having upper abdominal pain for about a week now, but it got much worse through the night. He has gotten nauseated and vomited once. Had a normal BM this AM. No fever. Had an hernia repair in January 2020 and was told he had another small hernia so not sure if it is that. Left Middle Abdominal Pain Score (Numeric/FACES): 4 - Related Data Allergies Allergy/AdvReac Type Severity Reaction Status Date / Time No Known Drug Allergies Allergy Cannot Verified 07/25/20 09:51 Remember Home Meds: Home Meds Aspirin [Halfprin] 81 mg PO DAILY 05/25/13 [History] Albuterol [Proventil HFA] 2 inh INH Q4H PRN 12/03/14 [History] atorvaSTATin [Lipitor] 10 mg PO DAILY 05/23/18 [History] Metoprolol Succinate [Toprol Xl] 75 mg PO DAILY 01/31/19 [History] Amoxicillin 2,000 mg PO ASDIRECTED 05/02/20 [History] Clotrimazole [Lotrimin AF 1% Crm] 1 dose TOP BID PRN 05/02/20 [History] Ibuprofen 800 mg PO TID 05/02/20 [History] polyethylene glycoL 3350 [MiraLAX] 17 gm PO DAILY 05/02/20 [History] Past Medical History HEENT History: Reports: Cataract Cardiovascular History: Reports: Afib, CAD, Cardiomyopathy, High Cholesterol, Other (See Below) Other Cardiovascular History: Mitral valve repair Respiratory History: Reports: Bronchitis, Recurrent, Other (See Below) Other Respiratory History: wheezing Gastrointestinal History: Reports: GERD Psychiatric History: Reports: Developmental Delay - Past Surgical History HEENT Surgical History: Reports: Tonsillectomy Cardiovascular Surgical History: Reports: Valve Replacement GI Surgical History: Reports: Hernia Repair/Other Musculoskeletal Surgical History: Reports: Knee Replacement Social & Family History - Family History Family Medical History: No Pertinent Family History Review of Systems - Review of Systems Review Of Systems: See Below Constitutional: Reports: No Symptoms Eyes: Reports: No Symptoms Ears: Reports: No Symptoms Nose: Reports: No Symptoms Mouth/Throat: Reports: No Symptoms Respiratory: Reports: No Symptoms Cardiovascular: Reports: No Symptoms GI/Abdominal: Reports: Abdominal Pain, Nausea, Vomiting (x1). Denies: Constipation, Diarrhea Genitourinary: Reports: No Symptoms Musculoskeletal: Reports: No Symptoms Skin: Reports: No Symptoms Neurological: Reports: No Symptoms Psychiatric: Reports: No Symptoms ED EXAM, GENERAL - Physical Exam Exam: See Below General Appearance: Alert, WD/WN, No Apparent Distress (Elderly male) Eye Exam: Bilateral Eye: PERRL Ears: Hearing Grossly Normal Nose: Normal Inspection, Normal Mucosa Throat/Mouth: Normal Inspection, Normal Lips, Normal Oropharynx, Normal Voice Head: Atraumatic, Normocephalic Neck: Normal Inspection Respiratory/Chest: No Respiratory Distress, Lungs Clear, Chest Non-Tender Cardiovascular: Normal Peripheral Pulses, Regular Rate, Rhythm, No JVD GI/Abdominal: Normal Bowel Sounds, Soft, Other (Note well healed surgical scar above umbilcal region, no palpable hernia or mass, note tenderness in krista LUQ region) (Male) Exam: Deferred Rectal (Males) Exam: Deferred Back Exam: Normal Inspection, Full Range of Motion Extremities: Normal Inspection, Normal Range of Motion, Normal Capillary Refill Neurological: Alert, Oriented, CN II-XII Intact, Normal Cognition, No Motor/Sensory Deficits Psychiatric: Normal Affect, Normal Mood Skin Exam: Warm, Dry, Intact Course - Vital Signs Text/Narrative:: 0772 Patient was seen by the ASSISTANT PORTFOLIO MANAGER on arrival. Labs ordered. He had Zofran enroute with EMS, but was given Fentanyl 100mcg IVP for pain. 0925 Labs reviewed. Note UA neg, CBC WBC=13.0, diff neg, CMP neg. CT Abd/pelvis W ordered due to abd pain. Patient more comfortable now and able to rest. 1130 CT results neg. Results discussed with patient. His symptoms seemed to have resolved and he is resting quietly. Will have him follow up with his PCP for further testing if sx persist. He was given discharge instructions and left the ER in stable condition. Last Recorded V/S: Last Vital Signs Temp 35 C L 10/10/20 06:55 Pulse 104 H 10/10/20 06:55 Resp 20 10/10/20 06:55 BP 121/72 10/10/20 06:55 Pulse Ox 96 10/10/20 06:55 - Orders/Labs/Meds Orders: Active Orders 24 hr Category Date Time Status Sodium Chloride 0.9% [Saline Flush] Med 10/10/20 07:17 Active 10 ml FLUSH ASDIRECTED PRN Saline Lock Insert [OM.PC] Stat Oth 10/10/20 07:17 Ordered Medication Orders Sodium Chloride (Sodium Chloride 0.9% 10 Ml Syringe) 10 ml FLUSH ASDIRECTED PRN PRN Reason: Keep Vein Open Labs: Laboratory Tests 10/10/20 10/10/20 10/10/20 Range/Units 07:36 07:36 08:36 WBC 13.0 H (4.0-10.0) x10^3/uL RBC 4.99 (4.5-6.0) x10^6/uL Hgb 15.7 (14.0-18.0) g/dL Hct 46.6 (40.0-52.0) % MCV 93.4 H (78.0-93.0) fL MCH 31.5 (26.0-32.0) pg MCHC 33.7 (32.0-36.0) g/dL RDW Coeff of Almaz 14.3 (10.0-15.0) % Plt Count 165 (130-400) x10^3/uL Neut % (Auto) 78.6 (50.0-80.0) % Lymph % (Auto) 10.3 L (25.0-50.0) % [place] % (Auto) 10.1 (2.0-11.0) % Eos % (Auto) 0.8 (0.0-4.0) % Baso % (Auto) 0.2 (0.2-1.2) % Sodium 142 (136-145) mmol/L Potassium 4.6 (3.5-5.1) mmol/L Chloride 107 (98-107) mmol/L Carbon Dioxide 26 (21-32) mmol/L Anion Gap 13.6 (5-15) mmol/L BUN 21 H (7-18) mg/dL Creatinine 1.2 (0.70-1.30) mg/dL Est Cr Clr Drug Dosing TNP Estimated GFR (MDRD) > 60 Glucose 119 H (70-99) mg/dL Calcium 8.2 L (8.5-10.1) mg/dL Corrected Calcium 8.9 (8.5-10.1) mg/dL Total Bilirubin 0.4 (0.2-1.0) mg/dL AST 16 (15-37) U/L ALT 23 (16-63) U/L Alkaline Phosphatase 78 (46-116) U/L Total Protein 6.9 (6.4-8.2) g/dL Albumin 3.1 L (3.4-5.0) g/dL Globulin 3.8 Albumin/Globulin Ratio 0.82 Amylase 50 (25-115) U/L Lipase 148 (73-393) U/L Urine Color Yellow (YELLOW) Urine Appearance Clear (CLEAR) Urine pH 6.0 (5.0-8.0) Ur Specific [place] 1.025 Urine Protein Negative (NEGATIVE) mg/dL Urine Glucose (UA) Negative (NEGATIVE) mg/dL Urine Ketones Negative (NEGATIVE) mg/dL Urine Occult Blood Negative (NEGATIVE) Urine Nitrite Negative (NEGATIVE) Urine Bilirubin Negative (NEGATIVE) Urine Urobilinogen 0.2 (0.2) EU/dL Ur Leukocyte Esterase Negative (NEGATIVE) Meds: Medications Generic Name Dose Route Start Last Admin Trade Name Freq PRN Reason Stop Dose Admin Sodium Chloride 10 ml 10/10/20 07:17 Sodium Chloride 0.9% 10 Ml Syringe FLUSH ASDIRECTED PRN Keep Vein Open Discontinued Medications Generic Name Dose Route Start Last Admin Trade Name Freq PRN Reason Stop Dose Admin Fentanyl 100 mcg 10/10/20 07:18 10/10/20 07:30 Fentanyl 100 Mcg/2 Ml Sdv IVPUSH 10/10/20 07:19 100 mcg ONETIME ONE Administration Ondansetron HCl 4 mg 10/10/20 07:18 Ondansetron 4 Mg/2 Ml Sdv IVPUSH 10/10/20 07:19 ONETIME ONE - Radiology Interpretation Free Text/Narrative:: CT Abd/Pelvis W=no acute findings (see final report) Departure - Departure Time of Disposition: 11:31 Disposition: Home, Self-Care 01 Condition: Good Clinical Impression: H/O hernia repair Abdominal pain Qualifiers: Abdominal location: left upper quadrant Qualified Code(s): R10.12 - Left upper quadrant pain - Discharge Information *PRESCRIPTION DRUG MONITORING PROGRAM REVIEWED*: Not Applicable *COPY OF PRESCRIPTION DRUG MONITORING REPORT IN PATIENT [place]: Not Applicable Instructions: Abdominal Pain, Adult, [id number] Referrals: Latricia Thomas TEST BORER [Primary Care Provider] - Additional Instructions: -Resume all home meds -If pain persists, make an appt with your PCP in [place] for further diagnostic testing -Return to the ER as needed. Sepsis Event Note (ED) - Focused Exam Vital Signs: Vital Signs Temp Pulse Resp BP Pulse Ox 10/10/20 06:55 35 C L 104 H 20 121/72 96 - My Orders Last 24 Hours: My Active Orders 10/10/20 07:17 Sodium Chloride 0.9% [Saline Flush] 10 ml FLUSH ASDIRECTED PRN Saline Lock Insert [OM.PC] Stat - Assessment/Plan Last 24 Hours: My Active Orders 10/10/20 07:17 Sodium Chloride 0.9% [Saline Flush] 10 ml FLUSH ASDIRECTED PRN Saline Lock Insert [OM.PC] Stat Assessment:: 1)Abdominal Pain 2)Hx Hernia Repair Plan: As above
[2020-10-10 07:57] LABS: CHLORIDE,CL 107 mmol/L (98-107); SODIUM,NA 142 mmol/L (136-145)
[2020-10-10 07:58] LABS: ANION GAP 13.6 mmol/L (5-15)
[2020-10-10 08:12] VITALS: BP 121/72; PULSE 104
--- NOTE | 2020-10-10 11:13 | CT ---
[id number] CT/CT Abdomen Pelvis W IV EXAM: CT Abdomen Pelvis W IV CLINICAL DATA: ABDOMEN PAIN. COMPARISON STUDY: None. FINDINGS: Lung bases are clear. Liver, spleen, pancreas, adrenal glands, and kidneys are unremarkable. Cholecystectomy. No bowel obstruction or inflammation. Appendectomy. No lymphadenopathy, free fluid, or pneumoperitoneum. Prostate gland enlargement, including nodular hypertrophy exerting mass effect on the bladder base to the trigone. Urinary bladder is unremarkable. 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 Spondylosis. IMPRESSION: No acute findings in the abdomen or pelvis. Other findings are described above. Saturnino Madrid MD 10/10/20 1112 Thank you for allowing us to participate in the care of your patient.
[2020-10-10] MEDS ORDERED: Iopamidol 612 MG/ML 100 ML Bottle IVPUSH ONE (12:47)
== END 2020-10-10 11:40 | disposition home or self-care (01) ==
LOC: VM.ED 06:52
DX: R10.12 Left upper quadrant pain (principal); I48.91 Unspecified atrial fibrillation; I25.10 Atherosclerotic heart disease of native coronary artery without angina pectoris; E78.00 Pure hypercholesterolemia, unspecified; K21.9 Gastro-esophageal reflux disease without esophagitis; Z79.82 Long term (current) use of aspirin; Z79.899 Other long term (current) drug therapy
CPT/HCPCS: 36415; 74177; 80053; 81003; 82150; 83690; 85025; 96374; 99283; 99285; J3010; Q9967

== ENCOUNTER 2021-04-07 11:13 | Emergency (ER) | payer MEDICARE, BC ==
--- NOTE | 2021-04-07 11:34 | EDM.PDOC ---
ED HPI GENERAL MEDICAL PROBLEM - General Stated Complaint: HEART PROBLEMS Time Seen by Provider: 04/07/21 11:32 Source of Information: Reports: Patient - History of Present Illness INITIAL COMMENTS - FREE TEXT/NARRATIVE: David is a 70 y/o female who comes to the ER with complaints of midsternal chest pain that started about 0900 when he was walking up the stairs. Similar to previous episodes of chest pain. He did take an 81mg ASA at home today. Denies nausea or diaphoresis with the pain. Rates it 4/10, but "better" now that he is resting. - Related Data Allergies Allergy/AdvReac Type Severity Reaction Status Date / Time No Known Drug Allergies Allergy Cannot Verified 07/25/20 09:51 Remember Home Meds: Home Meds Aspirin [Halfprin] 81 mg PO DAILY 05/25/13 [History] Albuterol [Proventil HFA] 2 inh INH Q4H PRN 12/03/14 [History] atorvaSTATin [Lipitor] 10 mg PO DAILY 05/23/18 [History] Metoprolol Succinate [Toprol Xl] 75 mg PO DAILY 01/31/19 [History] Amoxicillin 2,000 mg PO ASDIRECTED 05/02/20 [History] Clotrimazole [Lotrimin AF 1% Crm] 1 dose TOP BID PRN 05/02/20 [History] Ibuprofen 800 mg PO TID 05/02/20 [History] polyethylene glycoL 3350 [MiraLAX] 17 gm PO DAILY 05/02/20 [History] Past Medical History HEENT History: Reports: Cataract Cardiovascular History: Reports: Afib, CAD, Cardiomyopathy, High Cholesterol, Other (See Below) Other Cardiovascular History: Mitral valve repair Respiratory History: Reports: Bronchitis, Recurrent, Other (See Below) Other Respiratory History: wheezing Gastrointestinal History: Reports: GERD Psychiatric History: Reports: Developmental Delay - Past Surgical History HEENT Surgical History: Reports: Tonsillectomy Cardiovascular Surgical History: Reports: Valve Replacement GI Surgical History: Reports: Hernia Repair/Other Musculoskeletal Surgical History: Reports: Knee Replacement Social & Family History - Family History Family Medical History: No Pertinent Family History Review of Systems - Review of Systems Review Of Systems: See Below Constitutional: Reports: No Symptoms Eyes: Reports: No Symptoms Ears: Reports: No Symptoms Nose: Reports: No Symptoms Mouth/Throat: Reports: No Symptoms Respiratory: Reports: No Symptoms Cardiovascular: Reports: Chest Pain GI/Abdominal: Reports: No Symptoms Genitourinary: Reports: No Symptoms Musculoskeletal: Reports: No Symptoms Skin: Reports: No Symptoms Neurological: Reports: No Symptoms Psychiatric: Reports: No Symptoms ED EXAM, GENERAL - Physical Exam Exam: See Below Exam Limited By: No Limitations General Appearance: Alert, WD/WN, No Apparent Distress (Elderly male, non-toxic appearing) Eye Exam: Bilateral Eye: PERRL Ears: Normal External Exam, Normal Canal, Hearing Grossly Normal Nose: Normal Inspection, Normal Mucosa Throat/Mouth: Normal Inspection, Normal Lips, Normal Oropharynx, Normal Voice Head: Atraumatic, Normocephalic Neck: Normal Inspection, Supple Respiratory/Chest: No Respiratory Distress, Lungs Clear, Other (Mild tenderness to midsternal chest region) Cardiovascular: Normal Peripheral Pulses, Regular Rate, Rhythm, No Edema, No JVD, No Murmur GI/Abdominal: Normal Bowel Sounds, Soft, Non-Tender (Male) Exam: Deferred Rectal (Males) Exam: Deferred Back Exam: Normal Inspection, Full Range of Motion Extremities: Normal Inspection, Normal Range of Motion, No Pedal Edema, Normal Capillary Refill Neurological: Alert, Oriented, CN II-XII Intact, Normal Cognition, Normal Gait, No Motor/Sensory Deficits Psychiatric: Normal Affect, Normal Mood Skin Exam: Warm, Intact, Normal Color #1 Interpretation EKG Date: 04/07/21 Time: 11:16 Rhythm: NSR Rate (Beats/Min): 106 [place]: Normal P-Wave: Present QRS: Normal QT: Normal Comparison: Other: (Comparison 07/25/2020) EKG Interpretation Comments: Sinus Tachycardia with episode of Ventricular Bigeminy Course - Vital Signs Text/Narrative:: 1132 The patient was seen by the [facility]. Labs,EKG, CXR ordered. He was given ASA 81mg x 3 since he had one at home. 1220 Labs negative. EKG negative. Plan 3 hour observation and serial troponin. 1510 Troponin unchanged. No further c/o. Written instructions were given and he left the ER in stable condition. Last Recorded V/S: Last Vital Signs Temp 36.2 C 04/07/21 11:20 Pulse 72 04/07/21 14:25 Resp 14 04/07/21 14:25 BP 114/80 04/07/21 14:25 Pulse Ox 94 L 04/07/21 12:45 - Orders/Labs/Meds Orders: Active Orders 24 hr Category Date Time Status Sodium Chloride 0.9% [Saline Flush] Med 04/07/21 11:50 Active 10 ml FLUSH ASDIRECTED PRN Saline Lock Insert [OM.PC] Stat Oth 04/07/21 11:51 Ordered Medication Orders Sodium Chloride (Sodium Chloride 0.9% 10 Ml Syringe) 10 ml FLUSH ASDIRECTED PRN PRN Reason: Keep Vein Open Labs: Laboratory Tests 04/07/21 04/07/21 04/07/21 Range/Units 11:30 11:30 11:30 WBC 7.5 (4.0-10.0) x10^3/uL RBC 5.11 (4.5-6.0) x10^6/uL Hgb 15.8 (14.0-18.0) g/dL Hct 46.2 (40.0-52.0) % MCV 90.4 (78.0-93.0) fL MCH 30.9 (26.0-32.0) pg MCHC 34.2 (32.0-36.0) g/dL RDW Coeff of Almaz 13.4 (10.0-15.0) % Plt Count 167 (130-400) x10^3/uL Immature Gran % (Auto) 0.30 (0.00-0.43) % Neut % (Auto) 66.7 (50.0-80.0) % Lymph % (Auto) 20.3 L (25.0-50.0) % Williamson % (Auto) 10.7 (2.0-11.0) % Eos % (Auto) 1.3 (0.0-4.0) % Baso % (Auto) 0.7 (0.2-1.2) % Neut # (Auto) 5.0 (1.8-7.7) x10^3/uL Lymph # (Auto) 1.5 (1.0-4.8) x10^3/uL Williamson # (Auto) 0.8 (0.0-0.8) x10^3/uL Eos # (Auto) 0.1 (0.0-0.5) x10^3/uL Baso # (Auto) 0.1 (0.0-0.2) x10^3/uL Immature Gran # (Auto) 0.02 (0.00-0.07) x10^3/uL PT 10.7 (9.9-12.5) SEC INR 1.0 L (2.0-3.5) APTT 26.7 (25.6-32.8) SEC Sodium 142 (136-145) mmol/L Potassium 5.1 (3.5-5.1) mmol/L Chloride 105 (98-107) mmol/L Carbon Dioxide 28 (21-32) mmol/L Anion Gap 14.1 (5-15) mmol/L BUN 23 H (7-18) mg/dL Creatinine 1.1 (0.70-1.30) mg/dL Est Cr Clr Drug Dosing TNP Estimated GFR (MDRD) > 60 Glucose 110 H (70-99) mg/dL Calcium 9.1 (8.5-10.1) mg/dL Corrected Calcium 9.7 (8.5-10.1) mg/dL Magnesium 2.4 (1.8-2.4) mg/dL Total Bilirubin 0.5 (0.2-1.0) mg/dL AST 24 (15-37) U/L ALT 26 (16-63) U/L Alkaline Phosphatase 92 (46-116) U/L Troponin I High Sens 8 (<=76) ng/L Total Protein 7.3 (6.4-8.2) g/dL Albumin 3.2 L (3.4-5.0) g/dL Globulin 4.1 Albumin/Globulin Ratio 0.78 04/07/21 Range/Units 14:36 WBC (4.0-10.0) x10^3/uL RBC (4.5-6.0) x10^6/uL Hgb (14.0-18.0) g/dL Hct (40.0-52.0) % MCV (78.0-93.0) fL MCH (26.0-32.0) pg MCHC (32.0-36.0) g/dL RDW Coeff of Almaz (10.0-15.0) % Plt Count (130-400) x10^3/uL Immature Gran % (Auto) (0.00-0.43) % Neut % (Auto) (50.0-80.0) % Lymph % (Auto) (25.0-50.0) % Williamson % (Auto) (2.0-11.0) % Eos % (Auto) (0.0-4.0) % Baso % (Auto) (0.2-1.2) % Neut # (Auto) (1.8-7.7) x10^3/uL Lymph # (Auto) (1.0-4.8) x10^3/uL Williamson # (Auto) (0.0-0.8) x10^3/uL Eos # (Auto) (0.0-0.5) x10^3/uL Baso # (Auto) (0.0-0.2) x10^3/uL Immature Gran # (Auto) (0.00-0.07) x10^3/uL PT (9.9-12.5) SEC INR (2.0-3.5) APTT (25.6-32.8) SEC Sodium (136-145) mmol/L Potassium (3.5-5.1) mmol/L Chloride (98-107) mmol/L Carbon Dioxide (21-32) mmol/L Anion Gap (5-15) mmol/L BUN (7-18) mg/dL Creatinine (0.70-1.30) mg/dL Est Cr Clr Drug Dosing Estimated GFR (MDRD) Glucose (70-99) mg/dL Calcium (8.5-10.1) mg/dL Corrected Calcium (8.5-10.1) mg/dL Magnesium (1.8-2.4) mg/dL Total Bilirubin (0.2-1.0) mg/dL AST (15-37) U/L ALT (16-63) U/L Alkaline Phosphatase (46-116) U/L Troponin I High Sens 8 (<=76) ng/L Total Protein (6.4-8.2) g/dL Albumin (3.4-5.0) g/dL Globulin Albumin/Globulin Ratio Meds: Medications Generic Name Dose Route Start Last Admin Trade Name Freq PRN Reason Stop Dose Admin Sodium Chloride 10 ml 04/07/21 11:50 Sodium Chloride 0.9% 10 Ml Syringe FLUSH ASDIRECTED PRN Keep Vein Open Departure - Departure Time of Disposition: 15:09 Disposition: Home, Self-Care 01 Condition: Good Clinical Impression: Acute chest wall pain - Discharge Information Instructions: Nonspecific Chest Pain, Adult, [id number] Referrals: PCP,Not In Area [Primary Care Provider] - Additional Instructions: -Resume all meds -Warm/cool packs to chest region as needed -Rest as needed -Follow up with your PCP or return to the ER for any concerns Sepsis Event Note (ED) - Focused Exam Vital Signs: Vital Signs Temp Pulse Resp BP Pulse Ox 04/07/21 14:25 72 14 114/80 04/07/21 12:45 69 16 122/76 94 L 04/07/21 12:15 87 16 124/69 04/07/21 11:20 36.2 C 97 20 121/80 94 L - Problem List & Annotations (1) Acute chest wall pain SNOMED Code(s): 876630456, 760254085 Code(s): R07.89 - OTHER CHEST PAIN Status: Acute Current Visit: Yes Annotation/Comment:: Serial Troponins negative. EKG unchanged. Has been in for mulitple episodes of simlar pain. HEART Score=12-16.6% risk of MACE, 3 hours troponins studies negative today. Will discharge to home. - Problem List Review Problem List Initiated/Reviewed/Updated: Yes - My Orders Last 24 Hours: My Active Orders 04/07/21 11:50 Sodium Chloride 0.9% [Saline Flush] 10 ml FLUSH ASDIRECTED PRN 04/07/21 11:51 Saline Lock Insert [OM.PC] Stat - Assessment/Plan Last 24 Hours: My Active Orders 04/07/21 11:50 Sodium Chloride 0.9% [Saline Flush] 10 ml FLUSH ASDIRECTED PRN 04/07/21 11:51 Saline Lock Insert [OM.PC] Stat Plan: As above
[2021-04-07] MEDS ORDERED: Sodium Chloride 0.9% 10 ML Syringe FLUSH PRN (11:50)
[2021-04-07 12:34] LABS: PTT,PARTIAL THROMBOPLSTIN TIME 26.7 SEC (25.6-32.8)
[2021-04-07 12:35] LABS: CHLORIDE,CL 105 mmol/L (98-107); SODIUM,NA 142 mmol/L (136-145)
[2021-04-07 12:41] LABS: ANION GAP 14.1 mmol/L (5-15)
[2021-04-07] MEDS ORDERED: Aspirin 81 MG Tab.Chew PO ONE (15:14)
[2021-04-07 15:17] VITALS: BP 123/69; PULSE 76
== END 2021-04-07 15:15 | disposition home or self-care (01) ==
LOC: VM.ED 11:13
DX: R07.89 Other chest pain (principal); R00.0 Tachycardia, unspecified; I48.91 Unspecified atrial fibrillation; I25.10 Atherosclerotic heart disease of native coronary artery without angina pectoris; E78.00 Pure hypercholesterolemia, unspecified; Z79.82 Long term (current) use of aspirin; Z79.899 Other long term (current) drug therapy
CPT/HCPCS: 36415; 80053; 83735; 84484; 85025; 85610; 85730; 93005; 93010; 99284; 99285-25; A9270-GY

== ENCOUNTER 2021-05-24 01:17 | Emergency (ER) | payer MEDICARE, BC ==
[2021-05-24] MEDS ORDERED: Nitroglycerin 0.4 MG Tab.SL SL PRN (01:29)
[2021-05-24] MEDS ORDERED: Sodium Chloride 0.9% 10 ML Syringe FLUSH PRN (01:29)
[2021-05-24] MEDS ORDERED: Aspirin 81 MG Tab.Chew PO ONE (01:30)
[2021-05-24 02:09] LABS: ANION GAP 9.1 mmol/L (5-15); CHLORIDE,CL 107 mmol/L (98-107); SODIUM,NA 138 mmol/L (136-145)
[2021-05-24] MEDS ORDERED: Furosemide 20 MG Tab PO ONE (05:33)
[2021-05-24 06:13] VITALS: BP 126/65; PULSE 70
== END 2021-05-24 05:35 | disposition home or self-care (01) ==
LOC: VM.ED 01:17
DX: R07.89 Other chest pain (principal); I48.91 Unspecified atrial fibrillation; I25.10 Atherosclerotic heart disease of native coronary artery without angina pectoris; K21.9 Gastro-esophageal reflux disease without esophagitis; Z79.82 Long term (current) use of aspirin; Z79.899 Other long term (current) drug therapy; Z87.891 Personal history of nicotine dependence
CPT/HCPCS: 36415; 71046; 80053; 82550; 83615; 83880; 84484; 85025; 85379; 93010; 99284; 99285-25; A9270-GY

== ENCOUNTER 2021-09-03 13:10 | Emergency (ER) | payer MEDICARE, BC ==
[2021-09-03 13:49] VITALS: PULSE 89
[2021-09-03 14:02] LABS: CHLORIDE,CL 105 mmol/L (98-107); SODIUM,NA 142 mmol/L (136-145)
[2021-09-03 14:03] LABS: ANION GAP 12.5 mmol/L (5-15)
[2021-09-03 14:36] VITALS: BP 117/51
== END 2021-09-03 14:38 | disposition home or self-care (01) ==
LOC: VM.ED 13:10
DX: R07.89 Other chest pain (principal); R07.2 Precordial pain; I25.10 Atherosclerotic heart disease of native coronary artery without angina pectoris; I48.91 Unspecified atrial fibrillation; E78.00 Pure hypercholesterolemia, unspecified; Z79.82 Long term (current) use of aspirin; Z79.899 Other long term (current) drug therapy
CPT/HCPCS: 36415; 71046; 80053; 82550; 83615; 84484; 85025; 93005; 93010; 99284; 99285-25

== ENCOUNTER 2022-07-19 10:10 | Emergency (ER) | payer MEDICARE, BC ==
[2022-07-19 11:10] LABS: PTT,PARTIAL THROMBOPLSTIN TIME 28.8 SEC (23.6-33.6)
[2022-07-19 11:22] LABS: ANION GAP 12.4 mmol/L (5-15); CHLORIDE,CL 105 mmol/L (98-107); ESTIMATED GFR 72 mL/min (>=60); SODIUM,NA 142 mmol/L (136-145)
[2022-07-19 11:32] LABS: CORONAVIRUS COVID-19 NAA NEGATIVE (NEGATIVE); RESPIRATORY SYNCYTIAL VIR NAA NEGATIVE (NEGATIVE)
[2022-07-19 13:28] VITALS: BP 108/57; PULSE 78
== END 2022-07-19 12:16 | disposition home or self-care (01) ==
LOC: VM.ED 10:10
DX: R07.89 Other chest pain (principal); I48.91 Unspecified atrial fibrillation; E78.00 Pure hypercholesterolemia, unspecified; I25.10 Atherosclerotic heart disease of native coronary artery without angina pectoris; K21.9 Gastro-esophageal reflux disease without esophagitis; Z79.82 Long term (current) use of aspirin; Z79.899 Other long term (current) drug therapy; Z20.822 Contact with and (suspected) exposure to COVID-19
CPT/HCPCS: 0241U; 36415; 71045; 80053; 83605; 83735; 83880; 84100; 84443; 84484; 85025; 85610; 85730; 86140; 93005; 93010; 99284; 99285

== ENCOUNTER 2022-11-03 13:40 | Emergency (ER) | payer MEDICARE, BC ==
[2022-11-03] MEDS: Ketorolac 15 MG/ML SDV IVPUSH ONE (14:05)
[2022-11-03] MEDS: Metoclopramide 10 MG/2 ML SDV IVPUSH ONE (14:06)
[2022-11-03] MEDS: Lactated Ringers 1,000 ML IV ONE (14:06)
[2022-11-03 14:08] LABS: BASOPHILS PERCENT AUTO 0.4 % (0.2-1.2); EOSINOPHILS ABSOLUTE AUTO 0.2 x10^3/uL (0.0-0.5); EOSINOPHILS PERCENT AUTO 2.7 % (0.0-4.0); HEMATOCRIT 43.9 % (40.0-52.0); HEMOGLOBIN 15.2 g/dL (14.0-18.0); IMMATURE GRAN ABSOLUTE AUTO 0.05 x10^3/uL (0.00-0.07); LYMPHOCYTES ABSOLUTE AUTO 1.6 x10^3/uL (1.0-4.8); MEAN CORPUSCULAR HEMOGLOBIN 31.6 pg (26.0-32.0); MEAN CORPUSCULAR HGB CONC 34.6 g/dL (32.0-36.0); MEAN CORPUSCULAR VOLUME 91.3 fL (78.0-93.0); MONOCYTES ABSOLUTE AUTO 0.8 x10^3/uL (0.0-0.8); MONOCYTES PERCENT AUTO 10.3 % (2.0-11.0); NEUTROPHILS ABSOLUTE AUTO 5.3 x10^3/uL (1.8-7.7); PLATELET COUNT,PLT 166 x10^3/uL (130-400); RED BLOOD CELL COUNT 4.81 x10^6/uL (4.5-6.0); WHITE BLOOD CELL COUNT,WBC 8.1 x10^3/uL (4.0-10.0)
[2022-11-03 14:26] LABS: PROTHROMBIN TIME 10.5 SEC (9.5-12.2); PTT,PARTIAL THROMBOPLSTIN TIME 29.2 SEC (23.6-33.6)
[2022-11-03 14:27] VITALS: BP 113/73; PULSE 90
[2022-11-03 14:34] LABS: LACTIC ACID 0.9 mmol/L (0.4-2.0)
[2022-11-03 14:44] LABS: A/G RATIO 0.89; ALANINE AMINOTRANSFERASE,ALT 22 U/L (16-63); ALBUMIN 3.2 g/dL (3.4-5.0); ALKALINE PHOSPHATASE 86 U/L (46-116); ASPARTATE AMNIOTRANSFERASE,AST 17 U/L (15-37); BILIRUBIN TOTAL 0.4 mg/dL (0.2-1.0); BLOOD UREA NITROGEN,BUN 23 mg/dL (7-18); C-REACTIVE PROTEIN 0.94 mg/dL (<=0.30); CALCIUM 8.8 mg/dL (8.5-10.1); CARBON DIOXIDE,CO2 32 mmol/L (21-32); CHLORIDE,CL 104 mmol/L (98-107); CREATININE 1.1 mg/dL (0.70-1.30); GLUCOSE RANDOM 106 mg/dL (70-99); MAGNESIUM 2.1 mg/dL (1.8-2.4); PHOSPHORUS 4.1 mg/dL (2.6-4.7); POTASSIUM,K 4.4 mmol/L (3.5-5.1); PROTEIN TOTAL,TP 6.8 g/dL (6.4-8.2); SODIUM,NA 142 mmol/L (136-145); TSH ULTRASENSITIVE 2.014 uIU/mL (0.358-3.74)
[2022-11-03 14:51] LABS: ANION GAP 10.4 mmol/L (5-15); ESTIMATED GFR 72 mL/min (>=60)
[2022-11-03 14:57] LABS: ETHANOL BLOOD MEDICAL < 3 mg/dL (0-3)
== END 2022-11-03 15:13 | disposition home or self-care (01) ==
LOC: VM.ED 13:40
DX: G43.909 Migraine, unspecified, not intractable, without status migrainosus (principal); I25.10 Atherosclerotic heart disease of native coronary artery without angina pectoris; E78.00 Pure hypercholesterolemia, unspecified; Z87.891 Personal history of nicotine dependence; Z79.82 Long term (current) use of aspirin; Z79.899 Other long term (current) drug therapy
CPT/HCPCS: 36415; 70450; 71045; 80053; 80307; 83605; 83735; 84100; 84443; 84484; 85025; 85610; 85730; 86140; 93010; 96361; 96374; 96375; 99284; 99285-25; J1885; J2765; J7120

== ENCOUNTER 2023-01-24 11:53 | Emergency (ER) | payer MEDICARE, BC ==
[2023-01-24] MEDS ORDERED: Aspirin 81 MG Tab.Chew PO ONE (12:01)
[2023-01-24 12:15] LABS: BASOPHILS PERCENT AUTO 0.5 % (0.2-1.2); EOSINOPHILS ABSOLUTE AUTO 0.2 x10^3/uL (0.0-0.5); HEMATOCRIT 46.5 % (40.0-52.0); HEMOGLOBIN 15.8 g/dL (14.0-18.0); IMMATURE GRAN ABSOLUTE AUTO 0.03 x10^3/uL (0.00-0.07); LYMPHOCYTES ABSOLUTE AUTO 1.5 x10^3/uL (1.0-4.8); LYMPHOCYTES PERCENT AUTO 19.2 % (25.0-50.0); MEAN CORPUSCULAR HEMOGLOBIN 31.2 pg (26.0-32.0); MEAN CORPUSCULAR VOLUME 91.7 fL (78.0-93.0); MONOCYTES ABSOLUTE AUTO 0.9 x10^3/uL (0.0-0.8); MONOCYTES PERCENT AUTO 11.7 % (2.0-11.0); NEUTROPHILS ABSOLUTE AUTO 5.1 x10^3/uL (1.8-7.7); NEUTROPHILS PERCENT AUTO 66.2 % (50.0-80.0); PLATELET COUNT,PLT 176 x10^3/uL (130-400); RED BLOOD CELL COUNT 5.07 x10^6/uL (4.5-6.0); WHITE BLOOD CELL COUNT,WBC 7.7 x10^3/uL (4.0-10.0)
[2023-01-24 12:38] LABS: A/G RATIO 0.78; ALANINE AMINOTRANSFERASE,ALT 29 U/L (16-63); ALBUMIN 3.1 g/dL (3.4-5.0); ALKALINE PHOSPHATASE 87 U/L (46-116); ANION GAP 15.5 mmol/L (5-15); ASPARTATE AMNIOTRANSFERASE,AST 18 U/L (15-37); BILIRUBIN TOTAL 0.4 mg/dL (0.2-1.0); BLOOD UREA NITROGEN,BUN 22 mg/dL (7-18); CALCIUM 9.1 mg/dL (8.5-10.1); CARBON DIOXIDE,CO2 26 mmol/L (21-32); CHLORIDE,CL 105 mmol/L (98-107); CREATININE 1.2 mg/dL (0.70-1.30); ESTIMATED GFR 65 mL/min (>=60); GLUCOSE RANDOM 110 mg/dL (70-99); LIPASE 49 U/L (19-71); POTASSIUM,K 4.5 mmol/L (3.5-5.1); PROTEIN TOTAL,TP 7.1 g/dL (6.4-8.2); SODIUM,NA 142 mmol/L (136-145)
[2023-01-24 13:25] VITALS: PULSE 92
[2023-01-24 14:31] VITALS: BP 120/78
== END 2023-01-24 13:45 | disposition home or self-care (01) ==
LOC: VM.ED 11:53
DX: R07.89 Other chest pain (principal); I25.10 Atherosclerotic heart disease of native coronary artery without angina pectoris; I48.91 Unspecified atrial fibrillation; E78.00 Pure hypercholesterolemia, unspecified; Z79.899 Other long term (current) drug therapy; Z79.82 Long term (current) use of aspirin
CPT/HCPCS: 36415; 71045; 80053; 83690; 84484; 85025; 93005; 99285; A9270

== ENCOUNTER 2023-07-11 10:59 | Emergency (ER) | payer MEDICARE, BC ==
[2023-07-11] MEDS ORDERED: Sodium Chloride 0.9% 10 ML Syringe FLUSH PRN (11:08)
[2023-07-11 11:23] LABS: BASOPHILS PERCENT AUTO 0.4 % (0.2-1.2); EOSINOPHILS ABSOLUTE AUTO 0.2 x10^3/uL (0.0-0.5); EOSINOPHILS PERCENT AUTO 2.8 % (0.0-4.0); HEMATOCRIT 45.8 % (40.0-52.0); HEMOGLOBIN 15.5 g/dL (14.0-18.0); IMMATURE GRAN ABSOLUTE AUTO 0.05 x10^3/uL (0.00-0.07); LYMPHOCYTES ABSOLUTE AUTO 1.4 x10^3/uL (1.0-4.8); LYMPHOCYTES PERCENT AUTO 17.6 % (25.0-50.0); MEAN CORPUSCULAR HEMOGLOBIN 31.2 pg (26.0-32.0); MEAN CORPUSCULAR HGB CONC 33.8 g/dL (32.0-36.0); MEAN CORPUSCULAR VOLUME 92.2 fL (78.0-93.0); MONOCYTES ABSOLUTE AUTO 1.1 x10^3/uL (0.0-0.8); MONOCYTES PERCENT AUTO 12.8 % (2.0-11.0); NEUTROPHILS ABSOLUTE AUTO 5.4 x10^3/uL (1.8-7.7); NEUTROPHILS PERCENT AUTO 65.8 % (50.0-80.0); PLATELET COUNT,PLT 172 x10^3/uL (130-400); RED BLOOD CELL COUNT 4.97 x10^6/uL (4.5-6.0); WHITE BLOOD CELL COUNT,WBC 8.2 x10^3/uL (4.0-10.0)
[2023-07-11] MEDS: Aspirin 81 MG Tab.Chew PO ONE (11:30)
[2023-07-11 11:45] LABS: PROTHROMBIN TIME 10.2 SEC (8.9-11.5)
[2023-07-11 11:51] LABS: A/G RATIO 0.79; ALANINE AMINOTRANSFERASE,ALT 20 U/L (16-63); ALKALINE PHOSPHATASE 77 U/L (46-116); ANION GAP 13.5 mmol/L (5-15); ASPARTATE AMNIOTRANSFERASE,AST 19 U/L (15-37); BILIRUBIN TOTAL 0.6 mg/dL (0.2-1.0); BLOOD UREA NITROGEN,BUN 15 mg/dL (7-18); CALCIUM 8.9 mg/dL (8.5-10.1); CARBON DIOXIDE,CO2 27 mmol/L (21-32); CHLORIDE,CL 105 mmol/L (98-107); ESTIMATED GFR 80 mL/min (>=60); GLUCOSE RANDOM 108 mg/dL (70-99); POTASSIUM,K 4.5 mmol/L (3.5-5.1); PRO B-TYPE NATRIUR PEPT,BNPPRO 379 pg/mL (<=125); PROTEIN TOTAL,TP 6.8 g/dL (6.4-8.2); SODIUM,NA 141 mmol/L (136-145)
[2023-07-11] MEDS: Alum Hydrox/Mag Hydrox/Simeth 30 ML, Lidocaine 2% 15 ML PO ONE (12:03)
[2023-07-11 13:07] VITALS: BP 118/76; PULSE 75
== END 2023-07-11 12:31 | disposition home or self-care (01) ==
LOC: VM.ED 10:59
DX: K21.00 Gastro-esophageal reflux disease with esophagitis, without bleeding (principal); I25.10 Atherosclerotic heart disease of native coronary artery without angina pectoris; E78.00 Pure hypercholesterolemia, unspecified; Z79.82 Long term (current) use of aspirin; Z79.899 Other long term (current) drug therapy
CPT/HCPCS: 36415; 71045; 80053; 83880; 84484; 85025; 85610; 93005; 93010; 99284; 99285; A9270-GY

== ENCOUNTER 2023-10-17 11:58 | Emergency (ER) | payer MEDICARE, BC ==
[2023-10-17 12:17] LABS: BASOPHILS PERCENT AUTO 0.4 % (0.2-1.2); EOSINOPHILS ABSOLUTE AUTO 0.1 x10^3/uL (0.0-0.5); EOSINOPHILS PERCENT AUTO 1.3 % (0.0-4.0); HEMATOCRIT 46.3 % (40.0-52.0); HEMOGLOBIN 15.5 g/dL (14.0-18.0); IMMATURE GRAN ABSOLUTE AUTO 0.05 x10^3/uL (0.00-0.07); LYMPHOCYTES ABSOLUTE AUTO 1.3 x10^3/uL (1.0-4.8); LYMPHOCYTES PERCENT AUTO 16.2 % (25.0-50.0); MEAN CORPUSCULAR HEMOGLOBIN 31.1 pg (26.0-32.0); MEAN CORPUSCULAR HGB CONC 33.5 g/dL (32.0-36.0); MONOCYTES ABSOLUTE AUTO 0.8 x10^3/uL (0.0-0.8); MONOCYTES PERCENT AUTO 9.4 % (2.0-11.0); NEUTROPHILS ABSOLUTE AUTO 5.9 x10^3/uL (1.8-7.7); NEUTROPHILS PERCENT AUTO 72.1 % (50.0-80.0); PLATELET COUNT,PLT 183 x10^3/uL (130-400); RED BLOOD CELL COUNT 4.98 x10^6/uL (4.5-6.0); WHITE BLOOD CELL COUNT,WBC 8.2 x10^3/uL (4.0-10.0)
[2023-10-17 12:43] LABS: A/G RATIO 0.97; ALBUMIN 3.4 g/dL (3.4-5.0); ANION GAP 15.4 mmol/L (5-15); BILIRUBIN TOTAL 0.4 mg/dL (0.2-1.0); CALCIUM 9.2 mg/dL (8.5-10.1); CREATININE 1.3 mg/dL (0.70-1.30); EST CRCL DRUG DOSING (CG) 53.81 mL/min; POTASSIUM,K 4.4 mmol/L (3.5-5.1); PROTEIN TOTAL,TP 6.9 g/dL (6.4-8.2)
[2023-10-17] MEDS: Labetalol 20 MG/4 ML Syringe IVPUSH ONE (12:55)
[2023-10-17 13:13] VITALS: BP 104/75; PULSE 97
== END 2023-10-17 13:26 | disposition home or self-care (01) ==
LOC: VM.ED 11:58
DX: R06.02 Shortness of breath (principal); I25.10 Atherosclerotic heart disease of native coronary artery without angina pectoris; E78.00 Pure hypercholesterolemia, unspecified; Z87.891 Personal history of nicotine dependence; Z79.82 Long term (current) use of aspirin; Z79.899 Other long term (current) drug therapy
CPT/HCPCS: 71045; 80053; 83880; 84484; 85025; 93005; 93010; 96374; 99284; 99285-25; J1920

== ENCOUNTER 2023-12-31 04:52 | Emergency (ER) | payer MEDICARE, BC ==
[2023-12-31 05:17] VITALS: PULSE 72
[2023-12-31] MEDS: Acetaminophen 500 MG Tab PO ONE (05:43)
[2023-12-31] MEDS: Meclizine 25 MG Tab PO ONE (05:43)
[2023-12-31 07:15] VITALS: BP 154/67
== END 2023-12-31 07:29 | disposition home or self-care (01) ==
LOC: VM.ED 04:52
DX: R51.9 Headache, unspecified (principal); I25.10 Atherosclerotic heart disease of native coronary artery without angina pectoris; E78.00 Pure hypercholesterolemia, unspecified; Z79.82 Long term (current) use of aspirin; Z79.899 Other long term (current) drug therapy
CPT/HCPCS: 70450; 99284; A9270-GY

== ENCOUNTER 2024-02-27 11:05 | Emergency (ER) | payer MEDICARE, BC ==
[2024-02-27 11:17] VITALS: BP 110/77; PULSE 89
== END 2024-02-27 11:41 | disposition home or self-care (01) ==
LOC: VM.ED 11:05
DX: J20.9 Acute bronchitis, unspecified (principal); I25.10 Atherosclerotic heart disease of native coronary artery without angina pectoris; E78.00 Pure hypercholesterolemia, unspecified; K21.9 Gastro-esophageal reflux disease without esophagitis; Z79.82 Long term (current) use of aspirin; Z79.899 Other long term (current) drug therapy
CPT/HCPCS: 99283

== ENCOUNTER 2024-03-20 14:30 | Emergency (ER) | payer MEDICARE, BC ==
[2024-03-20] MEDS: Aspirin 81 MG Tab.Chew PO ONE (14:40)
[2024-03-20] MEDS ORDERED: Sodium Chloride 0.9% 10 ML Syringe FLUSH PRN (14:53)
[2024-03-20 15:15] LABS: BASOPHILS PERCENT AUTO 0.3 % (0.2-1.2); EOSINOPHILS ABSOLUTE AUTO 0.1 x10^3/uL (0.0-0.5); EOSINOPHILS PERCENT AUTO 1.3 % (0.0-4.0); HEMATOCRIT 45.9 % (40.0-52.0); HEMOGLOBIN 15.7 g/dL (14.0-18.0); IMMATURE GRAN ABSOLUTE AUTO 0.02 x10^3/uL (0.00-0.07); LYMPHOCYTES ABSOLUTE AUTO 1.5 x10^3/uL (1.0-4.8); LYMPHOCYTES PERCENT AUTO 19.4 % (25.0-50.0); MEAN CORPUSCULAR HEMOGLOBIN 31.7 pg (26.0-32.0); MEAN CORPUSCULAR HGB CONC 34.2 g/dL (32.0-36.0); MEAN CORPUSCULAR VOLUME 92.7 fL (78.0-93.0); MONOCYTES ABSOLUTE AUTO 0.8 x10^3/uL (0.0-0.8); MONOCYTES PERCENT AUTO 10.1 % (2.0-11.0); NEUTROPHILS ABSOLUTE AUTO 5.3 x10^3/uL (1.8-7.7); NEUTROPHILS PERCENT AUTO 68.6 % (50.0-80.0); PLATELET COUNT,PLT 174 x10^3/uL (130-400); RED BLOOD CELL COUNT 4.95 x10^6/uL (4.5-6.0); WHITE BLOOD CELL COUNT,WBC 7.7 x10^3/uL (4.0-10.0)
[2024-03-20 15:45] LABS: A/G RATIO 0.83; BILIRUBIN TOTAL 0.7 mg/dL (0.2-1.0); CALCIUM 9.3 mg/dL (8.5-10.1); CREATININE 1.4 mg/dL (0.70-1.30); POTASSIUM,K 4.2 mmol/L (3.5-5.1); PROTEIN TOTAL,TP 6.6 g/dL (6.4-8.2)
[2024-03-20 15:46] LABS: ANION GAP 14.2 mmol/L (5-15); EST CRCL DRUG DOSING (CG) 49.25 mL/min
[2024-03-20] MEDS: Albuterol/Ipratropium 3.0-0.5 MG/3 ML Neb Soln NEB ONE (16:05)
[2024-03-20 18:10] VITALS: BP 126/85; PULSE 96
== END 2024-03-20 16:49 | disposition home or self-care (01) ==
LOC: VM.ED 14:30
DX: R07.89 Other chest pain (principal); J44.1 Chronic obstructive pulmonary disease with (acute) exacerbation; I25.10 Atherosclerotic heart disease of native coronary artery without angina pectoris; E78.00 Pure hypercholesterolemia, unspecified; Z79.82 Long term (current) use of aspirin; Z79.899 Other long term (current) drug therapy
CPT/HCPCS: 36415; 71045; 80053; 83605; 84484; 85025; 87428-QW; 93005; 93010; 94640; 99284; 99285; A9270-GY; J7620-GY

== ENCOUNTER 2024-04-13 14:11 | Emergency (ER) | payer MEDICARE, BC ==
[2024-04-13 14:51] LABS: BASOPHILS PERCENT AUTO 0.3 % (0.2-1.2); EOSINOPHILS ABSOLUTE AUTO 0.1 x10^3/uL (0.0-0.5); EOSINOPHILS PERCENT AUTO 1.4 % (0.0-4.0); HEMATOCRIT 46.1 % (40.0-52.0); HEMOGLOBIN 15.7 g/dL (14.0-18.0); IMMATURE GRAN ABSOLUTE AUTO 0.04 x10^3/uL (0.00-0.07); LYMPHOCYTES ABSOLUTE AUTO 1.5 x10^3/uL (1.0-4.8); LYMPHOCYTES PERCENT AUTO 16.2 % (25.0-50.0); MEAN CORPUSCULAR HEMOGLOBIN 32.2 pg (26.0-32.0); MEAN CORPUSCULAR HGB CONC 34.1 g/dL (32.0-36.0); MEAN CORPUSCULAR VOLUME 94.7 fL (78.0-93.0); MONOCYTES ABSOLUTE AUTO 0.9 x10^3/uL (0.0-0.8); MONOCYTES PERCENT AUTO 9.5 % (2.0-11.0); NEUTROPHILS ABSOLUTE AUTO 6.6 x10^3/uL (1.8-7.7); NEUTROPHILS PERCENT AUTO 72.2 % (50.0-80.0); PLATELET COUNT,PLT 162 x10^3/uL (130-400); RED BLOOD CELL COUNT 4.87 x10^6/uL (4.5-6.0); WHITE BLOOD CELL COUNT,WBC 9.1 x10^3/uL (4.0-10.0)
[2024-04-13 15:09] LABS: PROTHROMBIN TIME 10.5 SEC (8.9-11.5); PTT,PARTIAL THROMBOPLSTIN TIME 28.7 SEC (21.9-33.8)
[2024-04-13 15:10] LABS: A/G RATIO 0.83; ALANINE AMINOTRANSFERASE,ALT 23 U/L (16-63); ALKALINE PHOSPHATASE 90 U/L (46-116); ASPARTATE AMNIOTRANSFERASE,AST 16 U/L (15-37); BILIRUBIN TOTAL 0.5 mg/dL (0.2-1.0); BLOOD UREA NITROGEN,BUN 19 mg/dL (7-18); CALCIUM 9.1 mg/dL (8.5-10.1); CARBON DIOXIDE,CO2 29 mmol/L (21-32); CHLORIDE,CL 105 mmol/L (98-107); CREATININE 1.3 mg/dL (0.70-1.30); GLUCOSE RANDOM 104 mg/dL (70-99); POTASSIUM,K 4.5 mmol/L (3.5-5.1); PROTEIN TOTAL,TP 6.6 g/dL (6.4-8.2); SODIUM,NA 141 mmol/L (136-145)
[2024-04-13 15:12] LABS: ANION GAP 11.5 mmol/L (5-15); ESTIMATED GFR 58 mL/min (>=60)
[2024-04-13 15:20] LABS: ETHANOL BLOOD MEDICAL < 3 mg/dL (0-3)
[2024-04-13 15:24] VITALS: BP 157/89; PULSE 101
[2024-04-13] MEDS: Morphine 4 MG/ML Syringe IVPUSH ONE (15:52)
[2024-04-13] MEDS: Ondansetron 4 MG/2 ML SDV IVPUSH ONE (15:52)
[2024-04-13] MEDS: Tranexamic Acid 1,000 MG in Sodium Chloride 0.9% 100 ML IV SCH (15:56)
== END 2024-04-13 16:20 | disposition short-term general hospital (02) ==
LOC: VM.ED 14:11
DX: S06.0X1A Concussion with loss of consciousness of 30 minutes or less, initial encounter (principal); S00.03XA Contusion of scalp, initial encounter; I48.92 Unspecified atrial flutter; R10.84 Generalized abdominal pain; I25.10 Atherosclerotic heart disease of native coronary artery without angina pectoris; E78.00 Pure hypercholesterolemia, unspecified; K21.9 Gastro-esophageal reflux disease without esophagitis; Z95.2 Presence of prosthetic heart valve; Z96.659 Presence of unspecified artificial knee joint; Z79.82 Long term (current) use of aspirin; Z79.51 Long term (current) use of inhaled steroids; Z79.52 Long term (current) use of systemic steroids; Z79.899 Other long term (current) drug therapy; W10.9XXA Fall (on) (from) unspecified stairs and steps, initial encounter
CPT/HCPCS: 36415; 70450; 71045; 72125; 72170; 80053; 80307; 85025; 85610; 85730; 93010; 96374; 96375; 99284; 99285-25; J2270; J2405

== ENCOUNTER 2024-07-30 10:00 | Emergency (ER) | payer MEDICARE, BC ==
[2024-07-30] MEDS ORDERED: Sodium Chloride 0.9% 500 ML IV ONE (10:23)
[2024-07-30 10:31] LABS: BASOPHILS PERCENT AUTO 0.4 % (0.2-1.2); EOSINOPHILS ABSOLUTE AUTO 0.2 x10^3/uL (0.0-0.5); EOSINOPHILS PERCENT AUTO 2.2 % (0.0-4.0); HEMATOCRIT 47.4 % (40.0-52.0); HEMOGLOBIN 15.9 g/dL (14.0-18.0); IMMATURE GRAN ABSOLUTE AUTO 0.03 x10^3/uL (0.00-0.07); LYMPHOCYTES ABSOLUTE AUTO 1.4 x10^3/uL (1.0-4.8); LYMPHOCYTES PERCENT AUTO 18.5 % (25.0-50.0); MEAN CORPUSCULAR HEMOGLOBIN 31.1 pg (26.0-32.0); MEAN CORPUSCULAR HGB CONC 33.5 g/dL (32.0-36.0); MEAN CORPUSCULAR VOLUME 92.6 fL (78.0-93.0); MONOCYTES ABSOLUTE AUTO 0.8 x10^3/uL (0.0-0.8); MONOCYTES PERCENT AUTO 11.1 % (2.0-11.0); NEUTROPHILS PERCENT AUTO 67.4 % (50.0-80.0); PLATELET COUNT,PLT 178 x10^3/uL (130-400); RED BLOOD CELL COUNT 5.12 x10^6/uL (4.5-6.0); WHITE BLOOD CELL COUNT,WBC 7.4 x10^3/uL (4.0-10.0)
[2024-07-30 10:36] LABS: INR 2.7 (0.9-1.1)
[2024-07-30 10:50] LABS: A/G RATIO 0.87; ALBUMIN 3.3 g/dL (3.4-5.0); ANION GAP 10.5 mmol/L (5-15); BILIRUBIN TOTAL 0.6 mg/dL (0.2-1.0); CALCIUM 8.8 mg/dL (8.5-10.1); CREATININE 1.3 mg/dL (0.70-1.30); EST CRCL DRUG DOSING (CG) 53.03 mL/min; POTASSIUM,K 4.5 mmol/L (3.5-5.1); PROTEIN TOTAL,TP 7.1 g/dL (6.4-8.2)
[2024-07-30] MEDS ORDERED: Warfarin 2.5 MG Tab PO ONE (12:00)
[2024-07-30] MEDS ORDERED: Warfarin 2 MG Tab PO SCH (12:15)
[2024-07-30 15:17] VITALS: BP 116/62; PULSE 93
== END 2024-07-30 12:45 | disposition home or self-care (01) ==
LOC: VM.ED 10:00
DX: R42 Dizziness and giddiness (principal); R51.9 Headache, unspecified; E78.00 Pure hypercholesterolemia, unspecified; Z79.82 Long term (current) use of aspirin; Z79.899 Other long term (current) drug therapy
CPT/HCPCS: 70450; 80053; 84484; 85025; 85610; 93010; 99284; 99285

== ENCOUNTER 2024-08-13 07:40 | Day surgery (SDC) | payer MEDICARE, BC ==
[~2024-08-13 07:40] MED LIST: Brimonidine 0.2% Ophth Soln 5 ML Bottle ONE; Dexamethasone/Neomycin/Polymyxin B Ophth Oint 3.5 GM Tube ONE; Lidocaine 1% 2 ML ONE; Phenyleprhine/Ketorolac 4 ML Vial ONE; Povidone-Iodine 5% Sterile Ophth Soln 30 ML Bottle ONE; Proparacaine 0.5% Ophth Soln 15 ML Bottle ONE
[2024-08-13] MEDS: Phenylephrine 2.5% Ophth Soln 2 ML Bot EYERT SCH (08:08)
[2024-08-13] MEDS: Cyclopentolate 1% Opth Soln 2 ML Bottle EYERT SCH (08:09)
[2024-08-13] MEDS: Tropicamide 1% Ophth Soln 15 ML Bottle EYERT SCH (08:09)
[2024-08-13] MEDS ORDERED: Midazolam 1 MG/ML 2 ML SDV ONE (08:12)
[2024-08-13] MEDS ORDERED: fentaNYL 100 MCG/2 ML SDV ONE (08:12)
[2024-08-13] MEDS: Moxifloxacin 0.5% Ophth Soln 3 ML Bottle EYERT ONE ×2 (08:30→09:50)
[2024-08-13] MEDS ORDERED: ceFAZolin 500 MG Vial ONE (09:00)
[2024-08-13] MEDS: Povidone-Iodine 5% Sterile Ophth Soln 30 ML Bottle EYERT ONE (09:50)
[2024-08-13] MEDS: Phenyleprhine/Ketorolac 4 ML Vial IO ONE (09:50)
[2024-08-13] MEDS: Balanced Salt Solution Ophth Irrig 500 ML Bottle IOCULAR ONE (09:50)
[2024-08-13] MEDS: Dexamethasone/Neomycin/Polymyxin B Ophth Oint 3.5 GM Tube EYERT ONE (09:51)
[2024-08-13] MEDS: Chondroitin Sulfate/Hyaluronate Sodium Ophth Inj 0.5 ML Syringe IOCULAR ONE (09:51)
[2024-08-13] MEDS: Lidocaine 1% PF 2 ML SDV INFILT ONE (09:51)
[2024-08-13] MEDS: Brimonidine 0.2% Ophth Soln 5 ML Bottle EYERT ONE (09:51)
[2024-08-13] MEDS: acetaZOLAMIDE 500 MG Cap.ER PO ONE (10:11)
[2024-08-13 10:17] VITALS: PULSE 73
[2024-08-13 10:18] VITALS: BP 124/81
== END 2024-08-13 10:34 | disposition home or self-care (01) ==
LOC: VM.SDS 07:40
PROVIDERS: ATTEND Ophthalmology
DX: H25.811 Combined forms of age-related cataract, right eye (principal); H35.3131 Nonexudative age-related macular degeneration, bilateral, early dry stage; I48.91 Unspecified atrial fibrillation; I50.32 Chronic diastolic (congestive) heart failure; I42.0 Dilated cardiomyopathy; K21.9 Gastro-esophageal reflux disease without esophagitis; Z79.01 Long term (current) use of anticoagulants; Z79.899 Other long term (current) drug therapy
CPT/HCPCS: 00142; 99100; A9270-GY; J0690; J1097; J2003; J2250; J3010; J3490; V2632

== ENCOUNTER 2025-03-14 12:51 | Emergency (ER) | payer MEDICARE, BC ==
[2025-03-14 13:13] VITALS: BP 121/75; PULSE 93
[2025-03-14 13:20] LABS: BASOPHILS ABSOLUTE AUTO 0.0 x10^3/uL (0.0-0.2); BASOPHILS PERCENT AUTO 0.3 % (0.2-1.2); EOSINOPHILS ABSOLUTE AUTO 0.2 x10^3/uL (0.0-0.5); EOSINOPHILS PERCENT AUTO 1.9 % (0.0-4.0); IMMATURE GRAN ABSOLUTE AUTO 0.03 x10^3/uL (0.00-0.07); IMMATURE GRAN PERCENT AUTO 0.30 % (0.00-0.43); LYMPHOCYTES ABSOLUTE AUTO 1.2 x10^3/uL (1.0-4.8); LYMPHOCYTES PERCENT AUTO 13.3 % (25.0-50.0); MONOCYTES ABSOLUTE AUTO 0.9 x10^3/uL (0.0-0.8); MONOCYTES PERCENT AUTO 10.3 % (2.0-11.0); NEUTROPHILS ABSOLUTE AUTO 6.7 x10^3/uL (1.8-7.7); NEUTROPHILS PERCENT AUTO 73.9 % (50.0-80.0); PLATELET COUNT,PLT 195 x10^3/uL (130-400); RED BLOOD CELL COUNT 5.00 x10^6/uL (4.5-6.0); WHITE BLOOD CELL COUNT,WBC 9.1 x10^3/uL (4.0-10.0)
[2025-03-14 13:42] LABS: A/G RATIO 0.75; ALANINE AMINOTRANSFERASE,ALT 26.0 U/L (16-63); ASPARTATE AMNIOTRANSFERASE,AST 17.0 U/L (15-37); BILIRUBIN TOTAL 0.5 mg/dL (0.2-1.0); BLOOD UREA NITROGEN,BUN 22.0 mg/dL (7-18); CARBON DIOXIDE,CO2 27.0 mmol/L (21-32); CHLORIDE,CL 105.0 mmol/L (98-107); CREATININE 1.1 mg/dL (0.70-1.30); EST CRCL DRUG DOSING (CG) 61.76 mL/min; ESTIMATED GFR 71.0 mL/min (>=60); GLUCOSE RANDOM 103.0 mg/dL (70-99); POTASSIUM,K 4.4 mmol/L (3.5-5.1); PROTEIN TOTAL,TP 7.0 g/dL (6.4-8.2); SODIUM,NA 141.0 mmol/L (136-145)
== END 2025-03-14 14:20 | disposition home or self-care (01) ==
LOC: VM.ED 12:51
DX: R00.2 Palpitations (principal); E78.00 Pure hypercholesterolemia, unspecified; Z79.01 Long term (current) use of anticoagulants; Z79.899 Other long term (current) drug therapy; Z90.49 Acquired absence of other specified parts of digestive tract
CPT/HCPCS: 36415; 80053; 84484; 85025; 93005; 99285